=== PATIENT | male | born 1950 | race Caucasian/White ===

== ENCOUNTER 2020-08-31 15:40 | Inpatient (IN) ==
[2020-08-31] MEDS ORDERED: ALBUT/IPRATROP 3MG/0.5MG NEB 3 ML VIAL INH STA (16:24)
[2020-08-31 16:35] LABS: Basophils # (auto) 0.01 K/uL (0-0.2); Basophils % (auto) 0.1 %; Eosinophils # (auto) 0.06 K/uL (0-0.5); Eosinophils % (auto) 0.7 %; Hematocrit (blood only) 42.4 % (42-52); Hemoglobin 13.4 g/dL (14.0-18.0); Immature Granulocytes # (auto) 0.02 K/uL (0.00-0.02); Immature Granulocytes % (auto) 0.2 %; Lymphocytes # (auto) 1.11 K/uL (1.2-3.4); Lymphocytes % (auto) 12.6 %; Mean Corpuscular Hemoglobin 29.7 pg (25-34); Mean Corpuscular Hgb Conc 31.6 g/dL (32-36); Mean Platelet Volume 10.4 fL (7.4-10.4); Monocytes # (auto) 0.73 K/uL (0.11-0.59); Monocytes % (auto) 8.3 %; Neutrophils # (auto) 6.88 K/uL (1.4-6.5); Neutrophils % (auto) 78.1 %; Platelet Count 387 K/uL (130-400); RDW Coefficient of Variation 16.5 % (11.5-14.5); RDW Standard Deviation 56.5 fL (36.4-46.3); Red Blood Count 4.51 M/uL (4.7-6.1); White Blood Count 8.81 K/uL (4.8-10.8)
[2020-08-31 16:43] LABS: Alanine Aminotransferase 43 U/L (12-78); Albumin Level 2.7 gm/dl (3.4-5.0); Aspartate Aminotransferase 20 U/L (15-37); Blood Urea Nitrogen 16 mg/dl (7-18); Calcium 10.1 mg/dl (8.5-10.1); Carbon Dioxide 31 mmol/L (21-32); Chloride 104 mmol/L (98-107); Est GFR (African American) 100.4; Est GFR (Non-African American) 86.6; Glucose 108 mg/dl (70-99); Magnesium 1.7 mg/dl (1.8-2.4); Potassium 3.8 mmol/L (3.5-5.1); Sodium 141 mmol/L (136-145)
[2020-08-31 16:48] LABS: Albumin Globulin Ratio 0.8 (0.9-2); Alkaline Phosphatase 75 U/L (45-117); Bilirubin,Total 0.7 mg/dl (0.2-1); Globulin 3.5 gm/dl (2.5-4.0); Total Protein 6.2 gm/dl (6.4-8.2); Troponin I 0.026 ng/ml (0-0.045)
[2020-08-31 16:55] LABS: INR 1.1 (0.9-1.1); Partial Thromboplastin Ratio 0.9; Partial Thromboplastin Time 24.8 Seconds (21.0-31.0); Prothrombin Time 11.3 Seconds (9.0-12.0)
--- NOTE | 2020-08-31 16:57 | XRay Report ---
XR chest 1V portable HISTORY: 70 years-old Male SOB acute shortness of breath COMPARISON: None TECHNIQUE: Portable AP view of the chest FINDINGS: Cardiac silhouette is upper limits of normal in size. Prominence of the pulmonary vasculature may ref lect pulmonary artery hypertension. Suggested emphysema. No pneumothorax. Interstitial opacities of t he mid and lower lung zones. Mild blunting of the costophrenic angles. Degenerative changes of the sh oulders and spine. IMPRESSION: Emphysema with interstitial opacities of the mid and lower lung zones which may be on a c hronic basis with associated atelectasis. An interstitial pneumonitis would be difficult to exclude. ACT 112: Negative or not required by law. The above report was generated using voice recognition software. It may contain grammatical, syntax o r spelling errors. Electronically signed by: Taz Farrar M.D. 08/31/2020 4:56 PM
--- NOTE | 2020-08-31 17:03 | Emergency Department Note ---
Impression & Plan Hypoxia, SOB (shortness of breath), Abnormal chest CT, Failure of outpatient treatment ED Provider Note NAME: MARION NAIK Jr AGE: 70 SEX: M : 1950 ARRIVES VIA: Ambulance INFORMANT: [Patient] ED PROVIDER(S): [Shukri Ford MD] CHIEF COMPLAINT: Short of breath HISTORY OF PRESENT ILLNESS: The patient is a 70-year-old male with COPD. He states that he was in the [facility] at the end of June until around July 27. He was in for Covid pneumonia. He was discharged on 4 L of O2, he had been on 2 L prior to the hospitalization. The patient states that around 2 weeks ago, he saw his doctors office and his doctor told him to increase his O2 usage to 8 L when needed. The patient was unable to get the equipment to supply 8 L of oxygen. Today, he went to the [facility] hoping they had the right equipment. [facility] of [facility], he was short of breath and his O2 saturation was in the 60s. He was sent here by ambulance. He did receive a DuoNeb prior to arrival. The patient states that he does not want to be here in the hospital. He only wants a way to administer the oxygen amount his doctor prescribed. He states that right now, he is comfortable. Its with exertion that he has shortness of breath. Patient has not had recent fever, no change in cough. He has had no diarrhea or vomiting or chest pain. Patient states that he finished a prednisone taper about a week ago. He is not currently on prednisone or any antibiotic. He has never had a PE or DVT. The patient's portable oxygen only supplies 4 L. His home oxygen delivery system can only supply 5 L. REVIEW OF SYSTEMS: See HPI for pertinent positives and negatives. A total of ten systems were reviewed and were otherwise negative. PMHx/PSHx: See Below SOCIAL HISTORY: See Below. PHYSICAL EXAM: GENERAL: Patient is in no acute distress. HEENT: No acute trauma, normocephalic atraumatic, mucous membranes moist, no nasal congestion, no scleral icterus. NECK: No stridor, no adenopathy, no meningismus, trachea is midline. LUNGS: Diminished breath sounds bilaterally, no wheeze or rhonchi, no respiratory distress. No wheeze. HEART: Without murmurs gallops or rubs, regular rate and rhythm. ABDOMEN: Soft, nontender, bowel sounds positive, no hernias, no peritonitis. EXTREMITIES: No cyanosis, mild bilateral pedal edema, full range of motion of all the joints without pain or difficulty, no signs for acute trauma. NEUROLOGIC: Oriented x 3, no acute motor or sensory deficits, no focal weakness. SKIN: No rash, no jaundice, no diaphoresis. DIFFERENTIAL DIAGNOSIS: Reactive airway disease, pneumonia, pneumothorax, COPD, CHF, infection, cardiac ischemia, pulmonary embolism, bronchitis, musculoskeletal, gastrointestinal, as well as other pathologies. EMERGENCY DEPARTMENT COURSE/PROCEDURES: ECG: Indication was shortness of breath. The ECG shows a normal sinus rhythm with some baseline artifact. There is some T wave inversion in the inferior and anterior leads. No ST elevation, no PVCs. The QTc is 339. No old ECGs available for comparison. Continuous Cardiac Monitoring: An order was placed for continuous cardiac monitoring. The monitor shows a rate of 97 with normal sinus rhythm. Critical Care Note: I have personally spent 43 minutes of critical care time in the direct management of this patient. This includes bedside care, interpretation of diagnostic studies, and testing, discussion with consultants, patient, and family members, and other required patient management activities. This 43 minutes is in excess of all separately billable procedures. MEDICAL DECISION MAKING: There is no leukocytosis or concerning anemia. There is a normal platelet count. No coagulopathy. No kidney failure. Magnesium slightly low at 1.7. No concerning liver enzyme elevation. Chest film shows some congestion to both lungs, no CHF or pneumonia. Chest CT does not show any obvious acute PE, some potential chronic findings were seen. Patient did have pulmonary infiltrates consistent with potential pneumonia. Some mucus plugging was seen. ECG showed a sinus rhythm, there were some T wave changes but no ST elevation. Cardiac enzyme testing x1 is not consistent with acute cardiac injury. The patient was hypoxic on his 4 L of oxygen prior to arrival. He has required an oxygen mask here to keep his saturations adequate. The patient presents with hypoxia. He likely is having issues from his previous Covid infection. I suspect he is still recovering. He has underlying lung disease at baseline and with the Covid infection, I think things have flared quite a bit. Patient is unable to get the oxygen he needs to be safe at home. I talked to the patient, he is aware of his findings. I did speak with case management. Case management attempted to arrange for oxygen delivery to his house this evening but were unsuccessful. [facility]. The patient is in need of hospitalization, he is hypoxic without significant oxygen supplementation. I did speak with the on-call hospitalist. Past Med/Surg History Medical History COPD (chronic obstructive pulmonary disease) COVID-19 Social History Smoking Status: Former smoker Feels Safe at Home: Yes Allergies Allergies Allergy/AdvReac Type Severity Reaction Status Date / Time No Known Allergies Allergy Verified 08/31/20 16:45 Home Meds Home Medications Medication Instructions Recorded Confirmed acetylcysteine 3 ml INHALATION BID 08/31/20 08/31/20 albuterol sulfate 2 puff INHALATION Q4H PRN 08/31/20 08/31/20 albuterol sulfate 2.5 mg INHALATION QID PRN 08/31/20 08/31/20 alendronate 70 mg PO WK 08/31/20 08/31/20 budesonide-formoterol 2 puff INHALATION BID 08/31/20 08/31/20 bupropion HCl 100 mg PO BID 08/31/20 08/31/20 calcium carbonate-vitamin D3 2 tab PO BID 08/31/20 08/31/20 [Calcium 500 + D] mometasone 3 inh INHALATION HS 08/31/20 08/31/20 montelukast [Singulair] 10 mg PO DAILY 08/31/20 08/31/20 omega 4-ego-duc-fish oil [Fish Oil] 2 cap PO DAILY 08/31/20 08/31/20 prednisone 40 mg PO DAILY PRN 08/31/20 08/31/20 sildenafil 100 mg PO DAILY PRN 08/31/20 08/31/20 tiotropium bromide 1 cap INHALATION DAILY 08/31/20 08/31/20 Results & Data (ED) Vital Signs Vital Signs - 24 hr 08/31/20 15:46 08/31/20 15:55 08/31/20 15:57 Temperature 36.8 C Temperature Source Oral Pulse Rate 100 H 99 H 101 H Pulse Rate [Apical] 101 H Pulse Rate from SpO2 Sensor Respiratory Rate 23 21 26 H Respiratory Effort / Characteristics Spontaneous Labored Respiratory Depth Normal Respiratory Pattern Regular Blood Pressure 134/86 134/86 Blood Pressure [Right Arm] 134/86 Blood Pressure Mean 102 102 Blood Pressure Mean [Right Arm] 102 Pulse Oximetry 73 L Oxygen Delivery Method Nasal Cannula Oxygen Flow Rate 8 Sepsis Recent Fever Within 48 Hours No Sepsis New/Unexplained Change in Mental Status No Sepsis Action Taken by Nursing No Action Required 08/31/20 16:00 08/31/20 16:02 08/31/20 16:03 Temperature Temperature Source Pulse Rate 95 H 96 H 96 H Pulse Rate [Apical] Pulse Rate from SpO2 Sensor 96 H 96 H Respiratory Rate 22 23 23 Respiratory Effort / Characteristics Respiratory Depth Respiratory Pattern Blood Pressure 119/80 Blood Pressure [Right Arm] Blood Pressure Mean 93 Blood Pressure Mean [Right Arm] Pulse Oximetry 95 93 Oxygen Delivery Method Oxymask Oxymask Oxygen Flow Rate 9 9 Sepsis Recent Fever Within 48 Hours Sepsis New/Unexplained Change in Mental Status Sepsis Action Taken by Nursing 08/31/20 16:29 08/31/20 16:30 08/31/20 16:31 Temperature Temperature Source Pulse Rate 91 H 90 89 Pulse Rate [Apical] Pulse Rate from SpO2 Sensor 91 H 89 Respiratory Rate 24 16 24 Respiratory Effort / Characteristics Respiratory Depth Respiratory Pattern Blood Pressure 133/80 Blood Pressure [Right Arm] Blood Pressure Mean 97 Blood Pressure Mean [Right Arm] Pulse Oximetry 93 90 93 Oxygen Delivery Method Oxymask Oxymask Oxymask Oxygen Flow Rate 9 9 9 Sepsis Recent Fever Within 48 Hours Sepsis New/Unexplained Change in Mental Status Sepsis Action Taken by Nursing 08/31/20 16:45 08/31/20 17:00 08/31/20 17:01 Temperature Temperature Source Pulse Rate 86 83 Pulse Rate [Apical] 90 Pulse Rate from SpO2 Sensor 89 84 Respiratory Rate 26 H 18 18 Respiratory Effort / Characteristics Spontaneous Respiratory Depth Respiratory Pattern Blood Pressure 133/87 Blood Pressure [Right Arm] Blood Pressure Mean 102 Blood Pressure Mean [Right Arm] Pulse Oximetry 93 95 Oxygen Delivery Method Oxymask Oxymask Oxygen Flow Rate 7 9 Sepsis Recent Fever Within 48 Hours Sepsis New/Unexplained Change in Mental Status Sepsis Action Taken by Nursing 08/31/20 17:31 08/31/20 18:00 08/31/20 18:01 Temperature Temperature Source Pulse Rate 81 80 79 Pulse Rate [Apical] Pulse Rate from SpO2 Sensor 81 80 78 Respiratory Rate 22 22 21 Respiratory Effort / Characteristics Respiratory Depth Respiratory Pattern Blood Pressure 130/85 139/83 Blood Pressure [Right Arm] Blood Pressure Mean 100 101 Blood Pressure Mean [Right Arm] Pulse Oximetry 94 93 91 Oxygen Delivery Method Oxymask Oxymask Oxymask Oxygen Flow Rate 7 7 7 Sepsis Recent Fever Within 48 Hours Sepsis New/Unexplained Change in Mental Status Sepsis Action Taken by Nursing 08/31/20 18:30 08/31/20 18:31 08/31/20 19:00 Temperature Temperature Source Pulse Rate 81 80 88 Pulse Rate [Apical] Pulse Rate from SpO2 Sensor 81 81 88 Respiratory Rate 22 24 25 H Respiratory Effort / Characteristics Respiratory Depth Respiratory Pattern Blood Pressure 130/88 154/94 H Blood Pressure [Right Arm] Blood Pressure Mean 102 114 Blood Pressure Mean [Right Arm] Pulse Oximetry 93 93 90 Oxygen Delivery Method Oxymask Oxymask Oxymask Oxygen Flow Rate 7 7 7 Sepsis Recent Fever Within 48 Hours Sepsis New/Unexplained Change in Mental Status Sepsis Action Taken by Nursing 08/31/20 19:01 08/31/20 19:30 Temperature Temperature Source Pulse Rate 86 81 Pulse Rate [Apical] Pulse Rate from SpO2 Sensor 86 80 Respiratory Rate 27 H 25 H Respiratory Effort / Characteristics Respiratory Depth Respiratory Pattern Blood Pressure 153/91 H Blood Pressure [Right Arm] Blood Pressure Mean 111 Blood Pressure Mean [Right Arm] Pulse Oximetry 92 97 Oxygen Delivery Method Oxymask Oxymask Oxygen Flow Rate 7 7 Sepsis Recent Fever Within 48 Hours Sepsis New/Unexplained Change in Mental Status Sepsis Action Taken by Assisted Medications Current Medication List: was personally reviewed by me Laboratory Data Attestation: I reviewed the patient's lab results. Result diagrams: 08/31/20 16:00 08/31/20 16:00 Lab Results 08/31/20 08/31/20 08/31/20 Range/Units 16:00 16:00 16:00 WBC 8.81 (4.8-10.8) K/uL RBC 4.51 L (4.7-6.1) M/uL Hgb 13.4 L (14.0-18.0) g/dL Hct 42.4 (42-52) % MCV 94.0 (80-100) fL MCH 29.7 (25-34) pg MCHC 31.6 L (32-36) g/dL RDW Std Deviation 56.5 H (36.4-46.3) fL RDW Coeff of Benji 16.5 H (11.5-14.5) % Plt Count 387 (130-400) K/uL MPV 10.4 (7.4-10.4) fL Immature Gran % (Auto) 0.2 % Neut % (Auto) 78.1 % Lymph % (Auto) 12.6 % [place] % (Auto) 8.3 % Eos % (Auto) 0.7 % Baso % (Auto) 0.1 % Reticulocyte % (Auto) 3.9 H (0.5-2.0) % Neut # (Auto) 6.88 H (1.4-6.5) K/uL Lymph # (Auto) 1.11 L (1.2-3.4) K/uL [place] # (Auto) 0.73 H (0.11-0.59) K/uL Eos # (Auto) 0.06 (0-0.5) K/uL Baso # (Auto) 0.01 (0-0.2) K/uL Reticulocyte # 0.17 H (0.02-0.10) 10^6/uL Immature Gran # (Auto) 0.02 (0.00-0.02) K/uL PT 11.3 (9.0-12.0) Seconds INR 1.1 (0.9-1.1) APTT 24.8 (21.0-31.0) Seconds PTT Ratio 0.9 Sodium 141 (136-145) mmol/L Potassium 3.8 (3.5-5.1) mmol/L Chloride 104 (98-107) mmol/L Carbon Dioxide 31 (21-32) mmol/L Anion Gap 7.0 (3-11) BUN 16 (7-18) mg/dl Creatinine 0.89 (0.6-1.4) mg/dl Est Cr Clr Drug Dosing Not Reportable Est GFR ( Amer) 100.4 Est GFR (Non-Af Amer) 86.6 BUN/Creatinine Ratio 18.0 (10-20) Glucose 108 H (70-99) mg/dl Calcium 10.1 (8.5-10.1) mg/dl Magnesium 1.7 L (1.8-2.4) mg/dl Total Bilirubin 0.7 (0.2-1) mg/dl AST 20 (15-37) U/L ALT 43 (12-78) U/L Alkaline Phosphatase 75 (45-117) U/L Troponin I 0.026 (0-0.045) ng/ml Total Protein 6.2 L (6.4-8.2) gm/dl Albumin 2.7 L (3.4-5.0) gm/dl Globulin 3.5 (2.5-4.0) gm/dl Albumin/Globulin Ratio 0.8 L (0.9-2) COVID-19 Eval Order 08/31/20 Range/Units 20:18 WBC (4.8-10.8) K/uL RBC (4.7-6.1) M/uL Hgb (14.0-18.0) g/dL Hct (42-52) % MCV (80-100) fL MCH (25-34) pg MCHC (32-36) g/dL RDW Std Deviation (36.4-46.3) fL RDW Coeff of Benji (11.5-14.5) % Plt Count (130-400) K/uL MPV (7.4-10.4) fL Immature Gran % (Auto) % Neut % (Auto) % Lymph % (Auto) % [place] % (Auto) % Eos % (Auto) % Baso % (Auto) % Reticulocyte % (Auto) (0.5-2.0) % Neut # (Auto) (1.4-6.5) K/uL Lymph # (Auto) (1.2-3.4) K/uL [place] # (Auto) (0.11-0.59) K/uL Eos # (Auto) (0-0.5) K/uL Baso # (Auto) (0-0.2) K/uL Reticulocyte # (0.02-0.10) 10^6/uL Immature Gran # (Auto) (0.00-0.02) K/uL PT (9.0-12.0) Seconds INR (0.9-1.1) APTT (21.0-31.0) Seconds PTT Ratio Sodium (136-145) mmol/L Potassium (3.5-5.1) mmol/L Chloride (98-107) mmol/L Carbon Dioxide (21-32) mmol/L Anion Gap (3-11) BUN (7-18) mg/dl Creatinine (0.6-1.4) mg/dl Est Cr Clr Drug Dosing Est GFR ( Amer) Est GFR (Non-Af Amer) BUN/Creatinine Ratio (10-20) Glucose (70-99) mg/dl Calcium (8.5-10.1) mg/dl Magnesium (1.8-2.4) mg/dl Total Bilirubin (0.2-1) mg/dl AST (15-37) U/L ALT (12-78) U/L Alkaline Phosphatase (45-117) U/L Troponin I (0-0.045) ng/ml Total Protein (6.4-8.2) gm/dl Albumin (3.4-5.0) gm/dl Globulin (2.5-4.0) gm/dl Albumin/Globulin Ratio (0.9-2) COVID-19 Eval [email or web address] Administered Medications Discontinued Medications Albuterol (Albut/Ipratrop 3mg/0.5mg Neb 3 Ml Vial) 3 ml INH NOW STA Stop: 08/31/20 16:25 Last Admin: 08/31/20 16:45 Dose: 3 ml Documented by: [id number] Dexamethasone (Dexamethasone Sod Inj 4 Mg/Ml Vial) 6 mg IV NOW STA Stop: 08/31/20 19:49 Last Admin: 08/31/20 20:11 Dose: 6 mg Documented by: [id number] Magnesium Sulfate/Dextrose (Magnesium Sulfate / D5w) 1 gm in 100 mls @ 100 mls/hr IV NOW STA Stop: 08/31/20 18:09 Last Infusion: 08/31/20 18:36 Dose: 0 mls/hr Documented by: [id number] Admin: 08/31/20 17:25 Dose: 100 mls/hr Documented by: [id number] Ioversol (Optiray 320 125ml) 116 ml IV ONCE ONE Stop: 08/31/20 18:50 Last Admin: 08/31/20 18:50 Dose: 116 ml Documented by: [id number] Potassium Chloride (Potassium Chloride Crtab 20 Meq Tabcr) 20 meq PO NOW STA Stop: 08/31/20 19:49 Last Admin: 08/31/20 20:11 Dose: 20 meq Documented by: [id number] Imaging Data Radiologist's Impression: XR chest 1V portable HISTORY: 70 years-old Male SOB acute shortness of breath COMPARISON: None TECHNIQUE: Portable AP view of the chest FINDINGS: Cardiac silhouette is upper limits of normal in size. Prominence of the pulmonary vasculature may reflect pulmonary artery hypertension. Suggested emphysema. No pneumothorax. Interstitial opacities of the mid and lower lung zones. Mild blunting of the costophrenic angles. Degenerative changes of the shoulders and spine. IMPRESSION: Emphysema with interstitial opacities of the mid and lower lung zones which may be on a chronic basis with associated atelectasis. An interstitial pneumonitis would be difficult to exclude. CHEST CTA for PULMONARY ARTERIES CT DOSE: 354.41 mGy.cm HISTORY: Shortness of breath. Atypical chest pain. TECHNIQUE: Multiaxial CT images of the chest were performed following the intravenous administration of contrast to evaluate the pulmonary arteries. Maxim al intensity projection images were also obtained. A dose lowering technique was utilized adhering to the principles of ALARA. COMPARISON STUDY: None. FINDINGS: The ascending thoracic aorta measures up to 4.3 cm in diameter. Inadequate contrast within the thoracic aorta to evaluate for a dissection. No pleural or pericardial effusions. The heart is mildly enlarged. Limited views of the upper abdomen demonstrate a normal spleen and adrenal glands. There is retrograde opacification of the hepatic veins. Normal esophagus. Incidental note is made of an aberrant right subclavian artery. There is mild mediastinal and bilateral hilar lymphadenopathy. The dominant left infrahilar lymph node measu res 1.7 cm. A dominant right hilar lymph node measures 11 mm. Dominant AP window lymph node measures 13 mm. Old L1 compression deformity. No suspicious lytic are blastic osseous lesions. Severe bullous emphysema. Partial opacification of a few the right middle and lower lobe bronchi. A few small linear scarlike densities within the upper lung zones. A few small peripheral nodular and groundglass densities are seen at the left lung base. Dominant irregular density within the base of the left lower lobe measures 1.6 cm. This is best seen on image 77. A few additional smaller nodular densities measuring between 5 and 8 mm. Additional patchy densities within the base of the right middle lobe and right lower lobe. These are nonspecific and could represent atelectasis or pneumonia. Questionable small linear filling defect seen within the right middle lobe pulmonary artery on image 138. This favors heterogeneous opacification rather than a chronic embolus. No evidence for acute pulmonary embolus. IMPRESSION: 1. No evidence for acute pulmonary embolus. 2. Questionable small linear filling defect seen within the right middle lobe pulmonary artery favors heterogeneous opacification rather than a chronic pulmonary embolus. 3. Severe emphysema. 4. Partial mucoid opacification of a few the right middle and lower lobe bronchi. 5. Patchy densities within the base of the right middle lobe and right lower lobe. This could represent atelectasis or pneumonia. 6. Small peripheral nodular and groundglass densities within the left lung base as described above. This could be due to a mild pneumonitis. However, [address] follow-up recommended to ensure stability/resolution of these nodules. 7. Mild mediastinal and bilateral hilar lymphadenopathy. This also bears watching future examinations. Discharge Plan Visit Data Chief Complaint: Shortness of Breath/Dyspnea Stated Complaint: SOB, HYPOXIA ED Provider: Shukri Ford Discharge Problem: Hypoxia, SOB (shortness of breath), Abnormal chest CT, Failure of outpatient treatment Patient Disposition: Admitted As Inpatient Condition: Fair Forms Stand Alone Forms: [facility] Prescriptions Prescriptions: No Action acetylcysteine 200 mg/mL (20 %) Solution 3 ml INHALATION BID RF: 0 albuterol sulfate 2.5 mg /3 mL (0.083 %) Solution For Nebulization 2.5 mg INHALATION QID PRN (Reason: Shortness Of Breath) RF: 0 prednisone 20 mg Tablet 40 mg PO DAILY PRN (Reason: RESCUE KIT) RF: 0 alendronate 70 mg Tablet 70 mg PO WK RF: 0 sildenafil 100 mg Tablet 100 mg PO DAILY PRN (Reason: Erectile Dysfunction) RF: 0 bupropion HCl 100 mg Tablet Sustained-Release 12 Hr 100 mg PO BID RF: 0 montelukast [Singulair] 10 mg Tablet 10 mg PO DAILY RF: 0 albuterol sulfate 90 mcg/actuation Hfa Aerosol Inhaler 2 puff INHALATION Q4H PRN (Reason: Shortness Of Breath) RF: 0 tiotropium bromide 18 mcg Capsule, W/Inhalation Device 1 cap INHALATION DAILY RF: 0 calcium carbonate-vitamin D3 [Calcium 500 + D] 500 mg(1,250mg) -200 unit Tablet 2 tab PO BID RF: 0 mometasone 220 mcg/ actuation (60) Aerosol Powdr Breath Activated 3 inh INHALATION HS RF: 0 budesonide-formoterol 160-4.5 mcg/actuation Hfa Aerosol Inhaler 2 puff INHALATION BID RF: 0 omega 0-wkv-vkm-fish oil [Fish Oil] 1,000 mg (120 mg-180 mg) Capsule 2 cap PO DAILY RF: 0 Referrals Referrals: Zoran Morrell III, MD [Primary Care Provider] -
[2020-08-31] MEDS ORDERED: MAGNESIUM SULFATE / D5W 1 GM/100 ML BAG IV STA (17:10)
[2020-08-31] MEDS ORDERED: OPTIRAY 320 125ml IV ONE (18:49)
--- NOTE | 2020-08-31 19:25 | CT Scan Report ---
CHEST CTA for PULMONARY ARTERIES CT DOSE: 354.41 mGy.cm HISTORY: Shortness of breath. Atypical chest pain. TECHNIQUE: Multiaxial CT images of the chest were performed following the intravenous administration of contrast to evaluate the pulmonary arteries. Maximal intensity projection images were also obtaine d. A dose lowering technique was utilized adhering to the principles of ALARA. COMPARISON STUDY: None. FINDINGS: The ascending thoracic aorta measures up to 4.3 cm in diameter. Inadequate contrast within the thoracic aorta to evaluate for a dissection. No pleural or pericardial effusions. The heart is mi ldly enlarged. Limited views of the upper abdomen demonstrate a normal spleen and adrenal glands. The re is retrograde opacification of the hepatic veins. Normal esophagus. Incidental note is made of an aberrant right subclavian artery. There is mild mediastinal and bilateral hilar lymphadenopathy. The dominant left infrahilar lymph node measures 1.7 cm. A dominant right hilar lymph node measures 11 mm . Dominant AP window lymph node measures 13 mm. Old L1 compression deformity. No suspicious lytic are blastic osseous lesions. Severe bullous emphysema. Partial opacification of a few the right middle a nd lower lobe bronchi. A few small linear scarlike densities within the upper lung zones. A few small peripheral nodular and groundglass densities are seen at the left lung base. Dominant irregular dens ity within the base of the left lower lobe measures 1.6 cm. This is best seen on image 77. A few scottie tional smaller nodular densities measuring between 5 and 8 mm. Additional patchy densities within the base of the right middle lobe and right lower lobe. These are nonspecific and could represent atelec tasis or pneumonia. Questionable small linear filling defect seen within the right middle lobe pulmon chi artery on image 138. This favors heterogeneous opacification rather than a chronic embolus. No ev idence for acute pulmonary embolus. IMPRESSION: 1. No evidence for acute pulmonary embolus. 2. Questionable small linear filling defect seen within the right middle lobe pulmonary artery favors heterogeneous opacification rather than a chronic pulmonary embolus. 3. Severe emphysema. 4. Partial mucoid opacification of a few the right middle and lower lobe bronchi. 5. Patchy densities within the base of the right middle lobe and right lower lobe. This could represe nt atelectasis or pneumonia. 6. Small peripheral nodular and groundglass densities within the left lung base as described above. T his could be due to a mild pneumonitis. However, [address] follow-up recommended to ensure sta bility/resolution of these nodules. 7. Mild mediastinal and bilateral hilar lymphadenopathy. This also bears watching future examinations . ACT 112: Positive. There are findings on this exam that require communication between the performing entity and the patient following Patient Test Result Information Act ([place] Act 112) guidelines. Electronically signed by: Gumaro Redman M.D. 08/31/2020 7:23 PM
[2020-08-31] MEDS ORDERED: POTASSIUM CHLORIDE CRTAB 20 MEQ TABCR PO STA (19:48)
[2020-08-31] MEDS ORDERED: DEXAMETHASONE SOD INJ 4 MG/ML VIAL IV STA (19:48)
[2020-08-31 20:13] LABS: Reticulocyte % 3.9 % (0.5-2.0); Reticulocytes # 0.17 10^6/uL (0.02-0.10)
[2020-08-31 20:39] LABS: HCO3 ABG 29 mmol/L (19-24); Oxygen Saturation ABG 96.7 % (90-95); PCO2 ABG 52 mmHg (35-46); PO2 ABG 93 mmHg (80-95); pH ABG 7.37 (7.35-7.45)
--- NOTE | 2020-08-31 20:43 | History & Physical Report ---
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 mood disorder as per records, at baseline past tobacco abuse. Medical telemetry Supplemental O2 Baseline ABG Decadron 1 dose now Patient requesting to hold off on additional steroid Rx after initial Decadron dose unless without improvement in the morning. Hesitation with steroid course following prolonged steroid course for recent COVID-19 illness. [facility] RTC Social service RE assistance with procurement of durable medical equipment (home O2 w 8LPM capability) Anemia work-up, transfuse PRBC if hemoglobin less than 7 and or for symptomatic anemia DVT prophylaxis Lovenox subcu DNR Total critical care care time was 40 minutes. Text document was generated using [email or web address] voice recognition software. It may contain grammatical or spelling errors. Kindly contact undersigned for clarification of any documentation item in question. History of Present Illness Chief Complaint: Hypoxemia Primary Care Provider: Zoran Morrell III, MD History obtained from patient and records. 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 Last confinement [facility] in [place] 6 weeks ago for COVID-19 pneumonia. No intubation done. Patient discharged home on supplemental O2 4 to 6 LPNC. After being discharged to home second week of July, patient found out that his oxygen concentrator only goes up to 5 L/min. Shortness of breath on exertion noted at home. O2 sats 80s on maximal 5 L at home. No unusual chest pain or cough symptoms. On follow-up at PCPs office last week, initial pulse ox noted to be 84%. Pulse ox improved to 92% on 8 L. Patient given prescription for home O2 set at 8 [facility]. Patient also given Lasix prescription for 2 weeks with note of leg swelling during office visit. Patient was at the local [place] clinic today to procure home O2 equipment. Equipment not available at the [place]. Patient noted to be short of breath and hypoxemic at the [place] clinic. O2 sats 60s. No chest pain, no unusual cough symptoms. Patient brought to the ER for evaluation. Received neb treatment at the ER. O2 sats at the ER at some point 80s on 10 L. Medical History as above Surgical History : Shoulder surgery, wrist surgery, hemorrhoidectomy Family History : Heart disease Personal/Social history : Past tobacco abuse, no EtOH intake, disabled Allergies Allergy/AdvReac Type Severity Reaction Status Date / Time No Known Allergies Allergy Verified 08/31/20 16:45 Home Medications Medication Instructions Recorded Confirmed Type acetylcysteine 3 ml INHALATION BID 08/31/20 08/31/20 History albuterol sulfate 2 puff INHALATION Q4H PRN 08/31/20 08/31/20 History albuterol sulfate 2.5 mg INHALATION QID PRN 08/31/20 08/31/20 History alendronate 70 mg PO WK 08/31/20 08/31/20 History budesonide-formoterol 2 puff INHALATION BID 08/31/20 08/31/20 History bupropion HCl 100 mg PO BID 08/31/20 08/31/20 History calcium carbonate-vitamin D3 2 tab PO BID 08/31/20 08/31/20 History [Calcium 500 + D] mometasone 3 inh INHALATION HS 08/31/20 08/31/20 History montelukast [Singulair] 10 mg PO DAILY 08/31/20 08/31/20 History omega 8-dvi-[id number]-fish oil [Fish Oil] 2 cap PO DAILY 08/31/20 08/31/20 History prednisone 40 mg PO DAILY PRN 08/31/20 08/31/20 History sildenafil 100 mg PO DAILY PRN 08/31/20 08/31/20 History tiotropium bromide 1 cap INHALATION DAILY 08/31/20 08/31/20 History Past Med/Surg History Medical History COPD (chronic obstructive pulmonary disease) COVID-19 Social History Smoking Status: Former smoker Smoking End Date: 7 yrs ago; Hx Alcohol Use: No Hx Substance Use: No Preferred Language: [place] Current Living Situation: Spouse Other Information That Helps Us Care for You: No Feels Safe at Home: Yes Assistive Devices: Glasses and Oxygen - Continuous Review of Systems Review of Systems: As per HPI, all 10 systems reviewed, all other ROS negative Physical Exam Physical Exam: GENERAL: Slightly uncomfortable, minimal respiratory distress SKIN: Pallor , warm HEENT: Pale palpebral conjunctivae, no ptosis, dry buccal mucosa, nasal cannula in place NECK : Supple, no tenderness CHEST : Decreased breath sounds, occasional expiratory wheezes, no tenderness HEART : RRR, no obvious murmurs ABDOMEN: Some distention, nontender RECTAL : Refused EXTREMITIES : No LE swelling/tenderness, no other conspicuous deformities noted NEUROLOGIC : Coherent, no facial asymmetry, no other gross focality Results & Data Results & Data ([facility]) Vital Signs (Past 12 Hours) Vital Signs Temp Pulse Pulse Resp BP BP Pulse Ox 08/31/20 19:30 81 25 H 153/91 H 97 08/31/20 19:01 86 27 H 92 08/31/20 19:00 88 25 H 154/94 H 90 08/31/20 18:31 80 24 93 08/31/20 18:30 81 22 130/88 93 08/31/20 18:01 79 21 91 08/31/20 18:00 80 22 139/83 93 08/31/20 17:31 81 22 130/85 94 08/31/20 17:01 83 18 95 08/31/20 17:00 86 18 133/87 08/31/20 16:45 90 26 H 93 08/31/20 16:31 89 24 93 08/31/20 16:30 90 16 133/80 90 08/31/20 16:29 91 H 24 93 08/31/20 16:03 96 H 23 93 08/31/20 16:02 96 H 23 119/80 95 08/31/20 16:00 95 H 22 08/31/20 15:57 36.8 C 101 H 101 H 26 H 134/86 134/86 73 L 08/31/20 15:55 99 H 21 08/31/20 15:46 100 H 23 134/86 Laboratory Results Laboratory Results WBC 8.81 K/uL (4.8-10.8) 08/31/20 16:00 RBC 4.51 M/uL (4.7-6.1) L 08/31/20 16:00 Hgb 13.4 g/dL (14.0-18.0) L 08/31/20 16:00 Hct 42.4 % (42-52) 08/31/20 16:00 MCV 94.0 fL (80-100) 08/31/20 16:00 MCH 29.7 pg (25-34) 08/31/20 16:00 MCHC 31.6 g/dL (32-36) L 08/31/20 16:00 RDW Std Deviation 56.5 fL (36.4-46.3) H 08/31/20 16:00 RDW Coeff of Benji 16.5 % (11.5-14.5) H 08/31/20 16:00 Plt Count 387 K/uL (130-400) 08/31/20 16:00 MPV 10.4 fL (7.4-10.4) 08/31/20 16:00 Immature Gran % (Auto) 0.2 % 08/31/20 16:00 Neut % (Auto) 78.1 % 08/31/20 16:00 Lymph % (Auto) 12.6 % 08/31/20 16:00 Yuba % (Auto) 8.3 % 08/31/20 16:00 Eos % (Auto) 0.7 % 08/31/20 16:00 Baso % (Auto) 0.1 % 08/31/20 16:00 Reticulocyte % (Auto) 3.9 % (0.5-2.0) H 08/31/20 16:00 Neut # (Auto) 6.88 K/uL (1.4-6.5) H 08/31/20 16:00 Lymph # (Auto) 1.11 K/uL (1.2-3.4) L 08/31/20 16:00 Yuba # (Auto) 0.73 K/uL (0.11-0.59) H 08/31/20 16:00 Eos # (Auto) 0.06 K/uL (0-0.5) 08/31/20 16:00 Baso # (Auto) 0.01 K/uL (0-0.2) 08/31/20 16:00 Reticulocyte # 0.17 10^6/uL (0.02-0.10) H 08/31/20 16:00 Immature Gran # (Auto) 0.02 K/uL (0.00-0.02) 08/31/20 16:00 PT 11.3 Seconds (9.0-12.0) 08/31/20 16:00 INR 1.1 (0.9-1.1) 08/31/20 16:00 APTT 24.8 Seconds (21.0-31.0) 08/31/20 16:00 PTT Ratio 0.9 08/31/20 16:00 Sodium 141 mmol/L (136-145) 08/31/20 16:00 Potassium 3.8 mmol/L (3.5-5.1) 08/31/20 16:00 Chloride 104 mmol/L (98-107) 08/31/20 16:00 Carbon Dioxide 31 mmol/L (21-32) 08/31/20 16:00 Anion Gap 7.0 (3-11) 08/31/20 16:00 BUN 16 mg/dl (7-18) 08/31/20 16:00 Creatinine 0.89 mg/dl (0.6-1.4) 08/31/20 16:00 Est Cr Clr Drug Dosing Not Reportable 08/31/20 16:00 Est GFR ( Amer) 100.4 08/31/20 16:00 Est GFR (Non-Af Amer) 86.6 08/31/20 16:00 BUN/Creatinine Ratio 18.0 (10-20) 08/31/20 16:00 Glucose 108 mg/dl (70-99) H 08/31/20 16:00 Calcium 10.1 mg/dl (8.5-10.1) 08/31/20 16:00 Magnesium 1.7 mg/dl (1.8-2.4) L 08/31/20 16:00 Total Bilirubin 0.7 mg/dl (0.2-1) 08/31/20 16:00 AST 20 U/L (15-37) 08/31/20 16:00 ALT 43 U/L (12-78) 08/31/20 16:00 Alkaline Phosphatase 75 U/L (45-117) 08/31/20 16:00 Troponin I 0.026 ng/ml (0-0.045) 08/31/20 16:00 Total Protein 6.2 gm/dl (6.4-8.2) L 08/31/20 16:00 Albumin 2.7 gm/dl (3.4-5.0) L 08/31/20 16:00 Globulin 3.5 gm/dl (2.5-4.0) 08/31/20 16:00 Albumin/Globulin Ratio 0.8 (0.9-2) L 08/31/20 16:00 [facility]19 [facility] 08/31/[facility] 20:[address] chest: 1. No evidence for acute pulmonary embolus. 2. Questionable small linear filling defect seen within the right middle lobe pulmonary artery favors heterogeneous opacification rather than a chronic pulmonary embolus. 3. Severe emphysema. 4. Partial mucoid opacification of a few the right middle and lower lobe bronchi. 5. Patchy densities within the base of the right middle lobe and right lower lobe. This could represent atelectasis or pneumonia. 6. Small peripheral nodular and groundglass densities within the left lung base as described above. This could be due to a mild pneumonitis. However, [address] follow-up recommended to ensure stability/resolution of these nodules. 7. Mild mediastinal and bilateral hilar lymphadenopathy. This also bears watching future examinations. EKG as per my interpretation rate 95, RAD, T wave abnormalities septal leads, low voltage
[2020-08-31 20:44] LABS: Allen Test Pos (Pos)
[2020-08-31 21:00] LABS: Ferritin 623.5 ng/ml (8-388)
[2020-08-31 21:23] LABS: Folate (Folic Acid) 16.8 ng/ml (>5.38)
[2020-08-31] MEDS ORDERED: traMADol HCL 50 MG TABLET PO PRN (23:59)
[2020-08-31] MEDS ORDERED: ACETAMINOPHEN 325 MG TAB PO PRN (23:59)
[2020-08-31] MEDS ORDERED: LACTATED RINGER'S 1,000 ML IV ONE (23:59)
[2020-08-31] MEDS ORDERED: PROMETHAZINE HCL 12.5 MG in SODIUM CHLORIDE 0.9% 50 ML IV PRN (23:59)
[2020-09-01] MEDS: buPROPion SR 100 MG TABCR PO SCH ×3 (00:33→20:04)
[2020-09-01] MEDS: ACETYLCYSTEINE 20% INHAL SOLN 30ML INH SCH ×3 (01:32→19:33)
[2020-09-01] MEDS ORDERED: IPRATROPIUM BROMIDE NEB SOLN 0.02% 2.5 ML VIAL INH STA (01:45)
[2020-09-01] MEDS ORDERED: LEVALBUTEROL 1.25MG/0.5ML NEB INH STA (01:45)
[2020-09-01 06:30] LABS: Basophils # (auto) 0.01 K/uL (0-0.2); Basophils % (auto) 0.2 %; Hematocrit (blood only) 44.6 % (42-52); Hemoglobin 13.8 g/dL (14.0-18.0); Immature Granulocytes # (auto) 0.01 K/uL (0.00-0.02); Immature Granulocytes % (auto) 0.2 %; Lymphocytes # (auto) 0.78 K/uL (1.2-3.4); Lymphocytes % (auto) 12.2 %; Mean Corpuscular Hemoglobin 29.7 pg (25-34); Mean Corpuscular Hgb Conc 30.9 g/dL (32-36); Mean Corpuscular Volume 95.9 fL (80-100); Mean Platelet Volume 10.8 fL (7.4-10.4); Monocytes # (auto) 0.21 K/uL (0.11-0.59); Monocytes % (auto) 3.3 %; Neutrophils # (auto) 5.36 K/uL (1.4-6.5); Neutrophils % (auto) 84.1 %; Platelet Count 404 K/uL (130-400); RDW Coefficient of Variation 16.6 % (11.5-14.5); RDW Standard Deviation 57.5 fL (36.4-46.3); Red Blood Count 4.65 M/uL (4.7-6.1); White Blood Count 6.37 K/uL (4.8-10.8)
[2020-09-01 07:10] LABS: BUN Creatinine Ratio 18.4 (10-20); Creatinine Clr Calc Pharmacy 101.5 ml/min; Est GFR (African American) 104.9; Est GFR (Non-African American) 90.5; Magnesium 2.1 mg/dl (1.8-2.4); Potassium 4.9 mmol/L (3.5-5.1)
[2020-09-01] MEDS: CALCIUM 600MG + VIT D 400 IU TAB PO SCH ×2 (08:29→20:04)
[2020-09-01] MEDS: FLUTICASONE/VILANTEROL 200/25MCG 14 PUFFS/INHALER INH SCH (08:29)
[2020-09-01] MEDS: ENOXAPARIN INJ 30 MG/0.3 ML SYR SQ SCH (08:30)
--- NOTE | 2020-09-01 15:35 | Hospitalist Progress Note ---
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(2 L at rest and 4 L with ambulation), pulmonary hypertension as per records Did not have the right dose of oxygen delivery system at home which made him more shortness of breath with hypoxemia Recent infection with Covid is complicating the oxygen requirement status He was sent into the emergency room from the [place] clinic Initially he required 15 L of oxygen to maintain saturation but since admission that level has gone down to 10 and sometimes below 10 He has been feeling much better The patient did not want to have a steroid and antibiotics are not indicated Will need to have a 2 steps O2 saturation test before discharge Abnormal CT scan Nothing significant but worth to have a follow-up CTA reported as: 1. No evidence for acute pulmonary embolus. 2. Questionable small linear filling defect seen within the right middle lobe pulmonary artery favors heterogeneous opacification rather than a chronic pulmonary embolus. 3. Severe emphysema. 4. Partial mucoid opacification of a few the right middle and lower lobe bronchi. 5. Patchy densities within the base of the right middle lobe and right lower lobe. This could represent atelectasis or pneumonia. 6. Small peripheral nodular and groundglass densities within the left lung base as described above. This could be due to a mild pneumonitis. However, [address] follow-up recommended to ensure stability/resolution of these nodules. 7. Mild mediastinal and bilateral hilar lymphadenopathy. This also bears watching future examinations Doubt any active infection Mild QUINTIN (CPAP intolerance as per records) New onset anemia Hemoglobin more than 13.8 No symptoms of recent GI bleed Transient hematochezia from straining months back. Will not need any further work-up but preventive follow-up will be good Mood disorder as per records, at baseline No acute psychosis Past tobacco abuse. Quit smoking about 10 years back Social service RE assistance with procurement of durable medical equipment (home O2 w 8LPM capability) DVT prophylaxis Lovenox subcu DNR Admission and Anticipated Discharge Date Admission Date: August 31, 2020 Subjective 09/01/2020 The patient was seen and examined in medical telemetry unit He was admitted with acute respiratory failure with hypoxia secondary to COPD exacerbation He did not have exact amount of oxygen delivery system for his COPD Has been feeling much better and requiring less oxygen compared with that of on admission Review of Systems Review of Systems: All systems reviewed and are unremarkable except as noted below Respiratory: + dyspnea; no dyspnea on exertion Cardiovascular: no chest pain and no palpitations Gastrointestinal: no abdominal pain Physical Exam Physical Exam: Lying in bed with moderate shortness of breath Constitutional: + ill appearing and average body habitus Eyes: PERRL, conjunctivae normal, anicteric sclerae ENMT: external ear and nose normal, oropharynx normal Neck: trachea midline, no thyromegaly Respiratory: + respiratory distress Auscultation: + diminished lung sounds and + wheezes (Occasional wheezing bilaterally) Cardiovascular: Rate/Rhythm: regular rate and regular rhythm Heart Sounds: no murmur Extremities: no edema Gastrointestinal (Abdomen): Inspection/Auscultation: normal bowel sounds; abdomen not distended Percussion/Palpation: abdomen soft; abdomen nontender Musculoskeletal: No acute arthritis in any joint Neurologic: Alert, awake and oriented x3. Generally weak Psychiatric: A+Ox3, euthymic affect Lymphatic: no cervical or axillary lymphadenopathy Results & Data Results & Data ([facility]) Vital Signs (Past 12 Hours) Vital Signs Temp Pulse Pulse Pulse Resp BP BP 09/01/20 13:21 09/01/20 11:11 36.8 C 87 18 134/81 09/01/20 08:35 18 09/01/20 07:30 78 09/01/20 07:25 36.9 C 81 20 144/86 H 09/01/20 04:57 90 09/01/20 04:15 36.6 C 95 H 20 136/84 Pulse Ox 09/01/20 13:21 95 09/01/20 11:11 94 09/01/20 08:35 97 09/01/20 07:30 09/01/20 07:25 100 09/01/20 04:57 09/01/20 04:15 95 Laboratory Results Short CBC 08/31/20 09/01/20 Range/Units 16:00 05:46 WBC 8.81 6.37 (4.8-10.8) K/uL Hgb 13.4 L 13.8 L (14.0-18.0) g/dL Hct 42.4 44.6 (42-52) % Plt Count 387 404 H (130-400) K/uL BMP 08/31/20 09/01/20 16:00 05:46 Sodium 141 142 Potassium 3.8 4.9 D Chloride 104 104 Carbon Dioxide 31 34 H BUN 16 15 Creatinine 0.89 0.80 Glucose 108 H 117 H Calcium 10.1 9.0 Cardiac Enzymes 08/31/20 Range/Units 16:00 Troponin I 0.026 (0-0.045) ng/ml Liver Function 08/31/20 Range/Units 16:00 Total Bilirubin 0.7 (0.2-1) mg/dl AST 20 (15-37) U/L ALT 43 (12-78) U/L Alkaline Phosphatase 75 (45-117) U/L Albumin 2.7 L (3.4-5.0) gm/dl Medications Administered Current Inpatient Medications Acetaminophen (Acetaminophen 325 Mg Tab) 650 mg PO Q4H PRN PRN Reason: Pain or Fever Stop: 09/30/20 23:58 Acetylcysteine (Acetylcysteine 20% Inhal Soln 30ml) 3 ml INH BIDR [facility] Stop: 09/30/20 23:58 Last Admin: 09/01/20 07:01 Dose: Not Given Documented by: Bupropion HCl (Bupropion Sr 100 Mg Tabcr) 100 mg PO BID [facility] Stop: 09/30/20 23:58 Last Admin: 09/01/20 08:30 Dose: 100 mg Documented by: Enoxaparin Sodium (Enoxaparin Inj 30 Mg/0.3 Ml Syr) 30 mg SQ QAM [facility] Stop: 10/01/20 08:59 Last Admin: 09/01/20 08:30 Dose: 30 mg Documented by: Fluticasone Furoate (Fluticasone Furoate 200mcg 14 Puffs/Inhaler) 1 puffs INH HS [facility] Stop: 10/01/20 20:59 Fluticasone/Vilanterol (Fluticasone/Vilanterol 200/25mcg 14 Puffs/Inhaler) 1 puffs INH DAILY [facility] Stop: 10/01/20 08:59 Last Admin: 09/01/20 08:29 Dose: 1 puffs Documented by: Lactated Ringer's (Lr) 1,000 mls @ 50 mls/hr IV .Q20H ONE Stop: 09/01/20 19:58 Last Admin: 09/01/20 00:12 Dose: 50 mls/hr Documented by: Promethazine HCl 12.5 mg/ (Sodium Chloride) 50.5 mls @ 202 mls/hr IV Q6H PRN PRN Reason: Nausea And Vomiting Stop: 09/30/20 23:58 Multivitamins/Minerals (Calcium 600mg + Vit D 400 Iu Tab) 2 tab PO BID [facility] Stop: 10/01/20 08:59 Last Admin: 09/01/20 08:29 Dose: 2 tab Documented by: Tramadol HCl (Tramadol Hcl 50 Mg Tablet) 25 - 50 mg PO Q4H PRN PRN Reason: Pain Stop: 09/30/20 23:58
[2020-09-01] MEDS ORDERED: FLUTICASONE FUROATE 200MCG 14 PUFFS/INHALER INH SCH (21:00)
--- NOTE | 2020-09-02 05:41 | Electrocardiogram Report ---
Test Reason : Blood Pressure : / mmHG Vent. Rate : 098 BPM Atrial Rate : 098 BPM P-R Int : 202 ms QRS Dur : 080 ms QT Int : 344 ms P-R-T Axes : 070 110 048 degrees QTc Int : 439 ms Poor data quality, interpretation may be adversely affected Normal sinus rhythm Right axis deviation Abnormal ECG No previous ECGs available Confirmed by Fly Hudson ([id number]) on 09/02/2020 5:41:13 AM Referred By: REFERRED SELF Confirmed By:Fly Hudson
[2020-09-02 06:03] LABS: Basophils # (auto) 0.01 K/uL (0-0.2); Basophils % (auto) 0.1 %; Eosinophils # (auto) 0.11 K/uL (0-0.5); Eosinophils % (auto) 1.2 %; Hematocrit (blood only) 43.7 % (42-52); Hemoglobin 13.3 g/dL (14.0-18.0); Immature Granulocytes # (auto) 0.02 K/uL (0.00-0.02); Immature Granulocytes % (auto) 0.2 %; Lymphocytes # (auto) 1.28 K/uL (1.2-3.4); Lymphocytes % (auto) 14.1 %; Mean Corpuscular Hemoglobin 29.4 pg (25-34); Mean Corpuscular Hgb Conc 30.4 g/dL (32-36); Mean Corpuscular Volume 96.5 fL (80-100); Mean Platelet Volume 10.4 fL (7.4-10.4); Monocytes # (auto) 0.84 K/uL (0.11-0.59); Monocytes % (auto) 9.2 %; Neutrophils # (auto) 6.85 K/uL (1.4-6.5); Neutrophils % (auto) 75.2 %; Platelet Count 373 K/uL (130-400); RDW Coefficient of Variation 16.5 % (11.5-14.5); RDW Standard Deviation 57.7 fL (36.4-46.3); Red Blood Count 4.53 M/uL (4.7-6.1); White Blood Count 9.11 K/uL (4.8-10.8)
[2020-09-02 06:41] LABS: BUN Creatinine Ratio 15.3 (10-20); Calcium 9.3 mg/dl (8.5-10.1); Creatinine Clr Calc Pharmacy 79.2 ml/min; Est GFR (African American) 102.8; Est GFR (Non-African American) 88.7; Phosphorus 3.1 mg/dl (2.5-4.9); Potassium 4.1 mmol/L (3.5-5.1)
[2020-09-02] MEDS: ACETYLCYSTEINE 20% INHAL SOLN 30ML INH SCH ×2 (07:58→18:49)
[2020-09-02] MEDS: FLUTICASONE/VILANTEROL 200/25MCG 14 PUFFS/INHALER INH SCH (08:15)
[2020-09-02] MEDS: CALCIUM 600MG + VIT D 400 IU TAB PO SCH ×2 (08:16→20:54)
[2020-09-02] MEDS: buPROPion SR 100 MG TABCR PO SCH ×2 (08:16→20:54)
[2020-09-02] MEDS: ENOXAPARIN INJ 30 MG/0.3 ML SYR SQ SCH (08:16)
[2020-09-02] MEDS: methylPREDNISolone 60 MG in SYRINGE 0 ML IV SCH ×2 (11:05→18:05)
--- NOTE | 2020-09-02 14:34 | Hospitalist Progress Note ---
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(2 L at rest and 4 L with ambulation), pulmonary hypertension as per records Did not have the right dose of oxygen delivery system at home which made him more shortness of breath with hypoxemia Recent infection with Covid is complicating the oxygen requirement status He was sent into the emergency room from the [place] clinic Initially he required 15 L of oxygen to maintain saturation but since admission that level has gone down to 10 and sometimes below 10 Condition is again worse today and requiring high flow oxygen to maintain saturation Denies any fever and/or chills and could not tolerate hospital provided inhalers He was a started with intravenous Solu-Medrol and nebulized bronchodilators with Mucomyst Abnormal CT scan Nothing significant but worth to have a follow-up CTA reported as: 1. No evidence for acute pulmonary embolus. 2. Questionable small linear filling defect seen within the right middle lobe pulmonary artery favors heterogeneous opacification rather than a chronic pulmonary embolus. 3. Severe emphysema. 4. Partial mucoid opacification of a few the right middle and lower lobe bronchi. 5. Patchy densities within the base of the right middle lobe and right lower lobe. This could represent atelectasis or pneumonia. 6. Small peripheral nodular and groundglass densities within the left lung base as described above. This could be due to a mild pneumonitis. However, [address] follow-up recommended to ensure stability/resolution of these nodules. 7. Mild mediastinal and bilateral hilar lymphadenopathy. This also bears watching future examinations Doubt any active infection Mild QUINTIN (CPAP intolerance as per records) New onset anemia Hemoglobin more than 13.8 No symptoms of recent GI bleed Transient hematochezia from straining months back. Will not need any further work-up but preventive follow-up will be good Mood disorder as per records, at baseline No acute psychosis Past tobacco abuse. Quit smoking about 10 years back Social service RE assistance with procurement of durable medical equipment (home O2 w 8LPM capability) DVT prophylaxis Lovenox subcu DNR We will get PT and OT evaluation before discharge and to do steps before discharge Admission and Anticipated Discharge Date Admission Date: August 31, 2020 Subjective 09/01/2020 The patient was seen and examined in medical telemetry unit He was admitted with acute respiratory failure with hypoxia secondary to COPD exacerbation He did not have exact amount of oxygen delivery system for his COPD Has been feeling much better and requiring less oxygen compared with that of on admission 09/02/2020 The patient was seen and examined in medical telemetry unit He has been complaining of more shortness of breath since this morning He could not tolerate hospital provided inhaler which caused lower chest pain and discomfort Has been requiring 12 to 15 L of oxygen to maintain saturation Review of Systems Review of Systems: All systems reviewed and are unremarkable except as noted below Respiratory: + dyspnea; no dyspnea on exertion Physical Exam Physical Exam: Lying in bed with moderate to severe shortness of breath Constitutional: + ill appearing and average body habitus Eyes: PERRL, conjunctivae normal, anicteric sclerae ENMT: external ear and nose normal, oropharynx normal Neck: trachea midline, no thyromegaly Respiratory: + respiratory distress Auscultation: + diminished lung sounds and + wheezes (Occasional wheezing bilaterally) Cardiovascular: Rate/Rhythm: regular rate and regular rhythm Heart Sounds: no murmur Extremities: no edema Gastrointestinal (Abdomen): Inspection/Auscultation: normal bowel sounds; abdomen not distended Percussion/Palpation: abdomen soft; abdomen nontender Musculoskeletal: No acute arthritis in any joint Psychiatric: A+Ox3, euthymic affect Lymphatic: no cervical or axillary lymphadenopathy Results & Data Results & Data ([facility]) Vital Signs (Past 12 Hours) Vital Signs Temp Pulse Pulse Pulse Resp BP Pulse Ox 09/02/20 11:09 36.7 C 87 20 118/69 93 09/02/20 08:00 66 09/02/20 03:55 36.5 C 79 22 136/85 95 Pulse Ox 09/02/20 11:09 09/02/20 08:00 98 09/02/20 03:55 Laboratory Results Short CBC 09/02/20 Range/Units 05:48 WBC 9.11 (4.8-10.8) K/uL Hgb 13.3 L (14.0-18.0) g/dL Hct 43.7 (42-52) % Plt Count 373 (130-400) K/uL BMP 09/02/20 05:48 Sodium 143 Potassium 4.1 D Chloride 103 Carbon Dioxide 39 H BUN 13 Creatinine 0.84 Glucose 76 Calcium 9.3 Medications Administered Current Inpatient Medications Acetaminophen (Acetaminophen 325 Mg Tab) 650 mg PO Q4H PRN PRN Reason: Pain or Fever Stop: 09/30/20 23:58 Acetylcysteine (Acetylcysteine 20% Inhal Soln 30ml) 3 ml INH BIDR [facility] Stop: 09/30/20 23:58 Last Admin: 09/02/20 07:58 Dose: Not Given Documented by: Albuterol (Albut/Ipratrop 3mg/0.5mg Neb 3 Ml Vial) 3 ml NEB Q6H PRN PRN Reason: Shortness Of Breath Or Wheezing Stop: 10/02/20 09:14 Bupropion HCl (Bupropion Sr 100 Mg Tabcr) 100 mg PO BID [facility] Stop: 09/30/20 23:58 Last Admin: 09/02/20 08:16 Dose: 100 mg Documented by: Enoxaparin Sodium (Enoxaparin Inj 30 Mg/0.3 Ml Syr) 30 mg SQ QAM [facility] Stop: 10/01/20 08:59 Last Admin: 09/02/20 08:16 Dose: 30 mg Documented by: Promethazine HCl 12.5 mg/ (Sodium Chloride) 50.5 mls @ 202 mls/hr IV Q6H PRN PRN Reason: Nausea And Vomiting Stop: 09/30/20 23:58 Methylprednisolone 60 mg/ (Syringe) 0.96 mls @ 1.5 mls/min IV Q8H [facility] Stop: 10/02/20 09:14 Last Admin: 09/02/20 11:05 Dose: 1.5 mls/min Documented by: Multivitamins/Minerals (Calcium 600mg + Vit D 400 Iu Tab) 2 tab PO BID [facility] Stop: 10/01/20 08:59 Last Admin: 09/02/20 08:16 Dose: 2 tab Documented by: Tramadol HCl (Tramadol Hcl 50 Mg Tablet) 25 - 50 mg PO Q4H PRN PRN Reason: Pain Stop: 09/30/20 23:58
[2020-09-02] MEDS: ALBUT/IPRATROP 3MG/0.5MG NEB 3 ML VIAL NEB PRN (18:49)
[2020-09-03] MEDS: methylPREDNISolone 60 MG in SYRINGE 0 ML IV SCH ×3 (01:12→17:54)
[2020-09-03] MEDS: ALBUT/IPRATROP 3MG/0.5MG NEB 3 ML VIAL NEB PRN (07:07)
[2020-09-03] MEDS: ACETYLCYSTEINE 20% INHAL SOLN 30ML INH SCH (07:08)
[2020-09-03] MEDS: CALCIUM 600MG + VIT D 400 IU TAB PO SCH ×2 (08:29→19:46)
[2020-09-03] MEDS: buPROPion SR 100 MG TABCR PO SCH ×2 (08:29→19:46)
[2020-09-03] MEDS: ENOXAPARIN INJ 30 MG/0.3 ML SYR SQ SCH (08:29)
--- NOTE | 2020-09-03 11:47 | Hospitalist Progress Note ---
Date of Service September 03, 2020 Assessment & Plan (1) Acute respiratory failure with hypoxia: Acute on chronic hypoxemic respiratory failure secondary to COPD exacerbation H/O chronic respiratory failure secondary to COPD/ILD on home O2(2 L at rest and 4 L with ambulation), pulmonary hypertension as per records Did not have the right dose of oxygen delivery system at home which made him more shortness of breath with hypoxemia Recent infection with Covid is complicating the oxygen requirement status He was sent into the emergency room from the [place] clinic Initially he required 15 L of oxygen to maintain saturation but since admission that level has gone down to 10 and sometimes below 10 Condition is again worse today and requiring high flow oxygen to maintain saturation Denies any fever and/or chills and could not tolerate hospital provided inhalers He was a started with intravenous Solu-Medrol and nebulized bronchodilators with Mucomyst Little bit better today and requiring less oxygen, still at 8 L/min to maintain saturation We will discontinue Mucomyst We will restart his home budesonide Abnormal CT scan Nothing significant but worth to have a follow-up CTA reported as: 1. No evidence for acute pulmonary embolus. 2. Questionable small linear filling defect seen within the right middle lobe pulmonary artery favors heterogeneous opacification rather than a chronic pulmonary embolus. 3. Severe emphysema. 4. Partial mucoid opacification of a few the right middle and lower lobe bronchi. 5. Patchy densities within the base of the right middle lobe and right lower lobe. This could represent atelectasis or pneumonia. 6. Small peripheral nodular and groundglass densities within the left lung base as described above. This could be due to a mild pneumonitis. However, [address] follow-up recommended to ensure stability/resolution of these nodules. 7. Mild mediastinal and bilateral hilar lymphadenopathy. This also bears watching future examinations Doubt any active infection Mild QUINTIN (CPAP intolerance as per records) New onset anemia Hemoglobin more than 13.8 No symptoms of recent GI bleed Transient hematochezia from straining months back. Will not need any further work-up but preventive follow-up will be good Mood disorder as per records, at baseline No acute psychosis Past tobacco abuse. Quit smoking about 10 years back Social service RE assistance with procurement of durable medical equipment (home O2 w 8LPM capability) DVT prophylaxis Lovenox subcu DNR We will get PT and OT evaluation before discharge and to do steps before discharge Admission and Anticipated Discharge Date Admission Date: August 31, 2020 Subjective 09/01/2020 The patient was seen and examined in medical telemetry unit He was admitted with acute respiratory failure with hypoxia secondary to COPD exacerbation He did not have exact amount of oxygen delivery system for his COPD Has been feeling much better and requiring less oxygen compared with that of on admission 09/02/2020 The patient was seen and examined in medical telemetry unit He has been complaining of more shortness of breath since this morning He could not tolerate hospital provided inhaler which caused lower chest pain and discomfort Has been requiring 12 to 15 L of oxygen to maintain saturation 09/03/2020 The patient was seen and examined in medical telemetry unit He has been feeling a little bit better Complains to have some burning sensation across lower chest with one type of nebulized bronchodilator Denies any other symptoms and oxygen requirements has gone down to 8 L from 15 L Review of Systems Review of Systems: All systems reviewed and are unremarkable except as noted below Respiratory: + dyspnea; no dyspnea on exertion Physical Exam Physical Exam: Sitting on a chair with mild to moderate shortness of breath at rest Constitutional: + ill appearing and average body habitus Eyes: PERRL, conjunctivae normal, anicteric sclerae ENMT: external ear and nose normal, oropharynx normal Neck: trachea midline, no thyromegaly Respiratory: + respiratory distress Auscultation: + diminished lung sounds (Hardly any airflow in the lungs with breathing); no wheezes (Occasional wheezing bilaterally) Cardiovascular: Rate/Rhythm: regular rate and regular rhythm Heart Sounds: no murmur Extremities: no edema Gastrointestinal (Abdomen): Inspection/Auscultation: normal bowel sounds; abdomen not distended Percussion/Palpation: abdomen soft; abdomen nontender Musculoskeletal: No acute arthritis in any joint Neurologic: Alert, awake and oriented x3. Generally very weak and lethargic Psychiatric: A+Ox3, euthymic affect Lymphatic: no cervical or axillary lymphadenopathy Results & Data Results & Data ([facility]) Vital Signs (Past 12 Hours) Vital Signs Temp Pulse Pulse Pulse Resp BP BP 09/03/20 07:52 36.8 C 09/03/20 07:47 79 20 136/82 09/03/20 07:14 70 09/03/20 07:08 81 18 09/03/20 02:56 36.9 C 80 18 112/70 09/02/20 23:51 36.6 C 85 18 110/64 Pulse Ox 09/03/20 07:52 09/03/20 07:47 95 09/03/20 07:14 09/03/20 07:08 95 09/03/20 02:56 92 09/02/20 23:51 92 Medications Administered Current Inpatient Medications Acetaminophen (Acetaminophen 325 Mg Tab) 650 mg PO Q4H PRN PRN Reason: Pain or Fever Stop: 09/30/20 23:58 Albuterol (Albut/Ipratrop 3mg/0.5mg Neb 3 Ml Vial) 3 ml NEB Q6H PRN PRN Reason: Shortness Of Breath Or Wheezing Stop: 10/02/20 09:14 Last Admin: 09/03/20 07:07 Dose: 3 ml Documented by: Bupropion HCl (Bupropion Sr 100 Mg Tabcr) 100 mg PO BID [facility] Stop: 09/30/20 23:58 Last Admin: 09/03/20 08:29 Dose: 100 mg Documented by: Enoxaparin Sodium (Enoxaparin Inj 30 Mg/0.3 Ml Syr) 30 mg SQ QAM [facility] Stop: 10/01/20 08:59 Last Admin: 09/03/20 08:29 Dose: 30 mg Documented by: Promethazine HCl 12.5 mg/ (Sodium Chloride) 50.5 mls @ 202 mls/hr IV Q6H PRN PRN Reason: Nausea And Vomiting Stop: 09/30/20 23:58 Methylprednisolone 60 mg/ (Syringe) 0.96 mls @ 1.5 mls/min IV Q8H [facility] Stop: 10/02/20 09:14 Last Admin: 09/03/20 10:20 Dose: 1.5 mls/min Documented by: Multivitamins/Minerals (Calcium 600mg + Vit D 400 Iu Tab) 2 tab PO BID [facility] Stop: 10/01/20 08:59 Last Admin: 09/03/20 08:29 Dose: 2 tab Documented by: Tramadol HCl (Tramadol Hcl 50 Mg Tablet) 25 - 50 mg PO Q4H PRN PRN Reason: Pain Stop: 09/30/20 23:58
[2020-09-03] MEDS: FLUTICASONE/VILANTEROL 100/25MCG 14 PUFFS/INHALER INH SCH (12:49)
[2020-09-03] MEDS: UMECLIDINIUM BROMIDE 62.5MCG/BLISTER 7 PUFFS/INHALER INH SCH (12:49)
[2020-09-04] MEDS: methylPREDNISolone 60 MG in SYRINGE 0 ML IV SCH ×3 (02:22→21:38)
[2020-09-04] MEDS: CALCIUM 600MG + VIT D 400 IU TAB PO SCH ×2 (08:40→21:38)
[2020-09-04] MEDS: FLUTICASONE/VILANTEROL 100/25MCG 14 PUFFS/INHALER INH SCH (08:40)
[2020-09-04] MEDS: buPROPion SR 100 MG TABCR PO SCH ×2 (08:40→21:37)
[2020-09-04] MEDS: UMECLIDINIUM BROMIDE 62.5MCG/BLISTER 7 PUFFS/INHALER INH SCH (08:41)
[2020-09-04] MEDS: ENOXAPARIN INJ 30 MG/0.3 ML SYR SQ SCH (08:41)
[2020-09-04] MEDS ORDERED: FLUTICASONE/VILANTEROL 100/25MCG 14 PUFFS/INHALER INH SCH (09:00)
--- NOTE | 2020-09-04 10:26 | Hospitalist Progress Note ---
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(2 L at rest and 4 L with ambulation), pulmonary hypertension as per records Did not have the right dose of oxygen delivery system at home which made him more shortness of breath with hypoxemia Recent infection with Covid is complicating the oxygen requirement status He was sent into the emergency room from the [place] clinic Initially he required 15 L of oxygen to maintain saturation but since admission that level has gone down to 10 and sometimes below 10 Condition is again worse today and requiring high flow oxygen to maintain saturation Denies any fever and/or chills and could not tolerate hospital provided inhalers Clinically much better today and his home inhalers have been restarted We will continue current medications and decrease Solu-Medrol to twice daily Abnormal CT scan Nothing significant but worth to have a follow-up CTA reported as: 1. No evidence for acute pulmonary embolus. 2. Questionable small linear filling defect seen within the right middle lobe pulmonary artery favors heterogeneous opacification rather than a chronic pulmonary embolus. 3. Severe emphysema. 4. Partial mucoid opacification of a few the right middle and lower lobe bronchi. 5. Patchy densities within the base of the right middle lobe and right lower lobe. This could represent atelectasis or pneumonia. 6. Small peripheral nodular and groundglass densities within the left lung base as described above. This could be due to a mild pneumonitis. However, [address] follow-up recommended to ensure stability/resolution of these nodules. 7. Mild mediastinal and bilateral hilar lymphadenopathy. This also bears watching future examinations Doubt any active infection Mild QUINTIN (CPAP intolerance as per records) New onset anemia Hemoglobin more than 13.8 No symptoms of recent GI bleed Transient hematochezia from straining months back. Will not need any further work-up but preventive follow-up will be good Monitor CBC Mood disorder as per records, at baseline No acute psychosis Past tobacco abuse. Quit smoking about 10 years back Social service RE assistance with procurement of durable medical equipment (home O2 w 8LPM capability) DVT prophylaxis Lovenox subcu DNR We will get PT and OT evaluation before discharge and to do steps before discharge Possible discharge on Sunday Admission and Anticipated Discharge Date Admission Date: August 31, 2020 Subjective 09/01/2020 The patient was seen and examined in medical telemetry unit He was admitted with acute respiratory failure with hypoxia secondary to COPD exacerbation He did not have exact amount of oxygen delivery system for his COPD Has been feeling much better and requiring less oxygen compared with that of on admission 09/02/2020 The patient was seen and examined in medical telemetry unit He has been complaining of more shortness of breath since this morning He could not tolerate hospital provided inhaler which caused lower chest pain and discomfort Has been requiring 12 to 15 L of oxygen to maintain saturation 09/03/2020 The patient was seen and examined in medical telemetry unit He has been feeling a little bit better Complains to have some burning sensation across lower chest with one type of nebulized bronchodilator Denies any other symptoms and oxygen requirements has gone down to 8 L from 15 L 09/04/2020 The patient was seen and examined in medical telemetry unit He has been feeling much better today and requiring less oxygen to maintain saturation Still gets more shortness of breath with ambulation Denies any other significant symptoms Review of Systems Review of Systems: All systems reviewed and are unremarkable except as noted below Respiratory: + dyspnea and + dyspnea on exertion Physical Exam Physical Exam: Sitting on a chair with mild to moderate shortness of breath at rest Constitutional: average body habitus; not ill appearing Eyes: PERRL, conjunctivae normal, anicteric sclerae ENMT: external ear and nose normal, oropharynx normal Neck: trachea midline, no thyromegaly Respiratory: + respiratory distress Auscultation: + diminished lung sounds (Hardly any airflow in the lungs with breathing); no wheezes (Occasional wheezing bilaterally) Cardiovascular: Rate/Rhythm: regular rate and regular rhythm Heart Sounds: no murmur Extremities: no edema Gastrointestinal (Abdomen): Inspection/Auscultation: normal bowel sounds; abdomen not distended Percussion/Palpation: abdomen soft; abdomen nontender Musculoskeletal: No acute arthritis in any joint Neurologic: Alert, awake and oriented x3. No focal sensory and motor deficit appreciated Psychiatric: A+Ox3, euthymic affect Lymphatic: no cervical or axillary lymphadenopathy Results & Data Results & Data ([facility]) Vital Signs (Past 12 Hours) Vital Signs Temp Pulse Pulse Resp BP BP Pulse Ox 09/04/20 07:15 36.6 C 81 20 131/79 97 09/04/20 04:22 36.4 C L 78 20 126/77 92 09/04/20 01:57 85 09/03/20 23:11 36.9 C 84 20 132/75 95 Medications Administered Current Inpatient Medications Acetaminophen (Acetaminophen 325 Mg Tab) 650 mg PO Q4H PRN PRN Reason: Pain or Fever Stop: 09/30/20 23:58 Albuterol (Albut/Ipratrop 3mg/0.5mg Neb 3 Ml Vial) 3 ml NEB Q6H PRN PRN Reason: Shortness Of Breath Or Wheezing Stop: 10/02/20 09:14 Last Admin: 09/03/20 07:07 Dose: 3 ml Documented by: Bupropion HCl (Bupropion Sr 100 Mg Tabcr) 100 mg PO BID [facility] Stop: 09/30/20 23:58 Last Admin: 09/04/20 08:40 Dose: 100 mg Documented by: Enoxaparin Sodium (Enoxaparin Inj 30 Mg/0.3 Ml Syr) 30 mg SQ QAM [facility] Stop: 10/01/20 08:59 Last Admin: 09/04/20 08:41 Dose: 30 mg Documented by: Fluticasone/Vilanterol (Fluticasone/Vilanterol 100/25mcg 14 Puffs/Inhaler) 1 puffs INH DAILY [facility] Stop: 10/03/20 11:59 Last Admin: 09/04/20 08:40 Dose: 1 puffs Documented by: Promethazine HCl 12.5 mg/ (Sodium Chloride) 50.5 mls @ 202 mls/hr IV Q6H PRN PRN Reason: Nausea And Vomiting Stop: 09/30/20 23:58 Methylprednisolone 60 mg/ (Syringe) 0.96 mls @ 1.5 mls/min IV Q8H [facility] Stop: 10/02/20 09:14 Last Admin: 09/04/20 09:57 Dose: 1.5 mls/min Documented by: Multivitamins/Minerals (Calcium 600mg + Vit D 400 Iu Tab) 2 tab PO BID [facility] Stop: 10/01/20 08:59 Last Admin: 09/04/20 08:40 Dose: 2 tab Documented by: Tramadol HCl (Tramadol Hcl 50 Mg Tablet) 25 - 50 mg PO Q4H PRN PRN Reason: Pain Stop: 09/30/20 23:58 Umeclidinium [place] (Umeclidinium [place] 62.5mcg/Blister 7 Puffs/Inhaler) 1 puffs INH QAM [facility] Stop: 10/03/20 11:59 Last Admin: 09/04/20 08:41 Dose: 1 puffs Documented by:
[2020-09-05 06:46] LABS: Hematocrit (blood only) 42.8 % (42-52); Hemoglobin 13.2 g/dL (14.0-18.0); Immature Granulocytes # (auto) 0.02 K/uL (0.00-0.02); Immature Granulocytes % (auto) 0.2 %; Lymphocytes # (auto) 0.61 K/uL (1.2-3.4); Lymphocytes % (auto) 5.6 %; Mean Corpuscular Hemoglobin 29.3 pg (25-34); Mean Corpuscular Hgb Conc 30.8 g/dL (32-36); Mean Corpuscular Volume 95.1 fL (80-100); Mean Platelet Volume 10.8 fL (7.4-10.4); Monocytes # (auto) 0.59 K/uL (0.11-0.59); Monocytes % (auto) 5.4 %; Neutrophils # (auto) 9.68 K/uL (1.4-6.5); Neutrophils % (auto) 88.8 %; Platelet Count 378 K/uL (130-400); RDW Coefficient of Variation 16.4 % (11.5-14.5); RDW Standard Deviation 55.9 fL (36.4-46.3)
[2020-09-05 07:19] LABS: BUN Creatinine Ratio 38.4 (10-20); Calcium 8.6 mg/dl (8.5-10.1); Creatinine Clr Calc Pharmacy 120.9 ml/min; Est GFR (African American) 122.4; Est GFR (Non-African American) 105.6; Potassium 4.2 mmol/L (3.5-5.1)
[2020-09-05] MEDS: UMECLIDINIUM BROMIDE 62.5MCG/BLISTER 7 PUFFS/INHALER INH SCH (07:30)
[2020-09-05] MEDS: buPROPion SR 100 MG TABCR PO SCH ×2 (07:32→21:24)
[2020-09-05] MEDS: CALCIUM 600MG + VIT D 400 IU TAB PO SCH ×2 (07:32→21:25)
[2020-09-05] MEDS: ENOXAPARIN INJ 30 MG/0.3 ML SYR SQ SCH (07:33)
[2020-09-05] MEDS: FLUTICASONE/VILANTEROL 100/25MCG 14 PUFFS/INHALER INH SCH (07:36)
[2020-09-05] MEDS: methylPREDNISolone 60 MG in SYRINGE 0 ML IV SCH ×2 (09:39→21:47)
--- NOTE | 2020-09-05 10:53 | Hospitalist Progress Note ---
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(2 L at rest and 4 L with ambulation), pulmonary hypertension as per records Did not have the right dose of oxygen delivery system at home which made him more shortness of breath with hypoxemia Recent infection with Covid is complicating the oxygen requirement status He was sent into the emergency room from the [place] clinic Initially he required 15 L of oxygen to maintain saturation but since admission that level has gone down to 10 and sometimes below 10 Condition is again worse today and requiring high flow oxygen to maintain saturation Denies any fever and/or chills and could not tolerate hospital provided inhalers Clinically much better today and his home inhalers have been restarted We will continue current medications and decrease Solu-Medrol to twice daily He is back to his baseline Likely discharge tomorrow with tapering dose of prednisone He may need new oxygen supplier at home Abnormal CT scan Nothing significant but worth to have a follow-up CTA reported as: 1. No evidence for acute pulmonary embolus. 2. Questionable small linear filling defect seen within the right middle lobe pulmonary artery favors heterogeneous opacification rather than a chronic pulmonary embolus. 3. Severe emphysema. 4. Partial mucoid opacification of a few the right middle and lower lobe bronchi. 5. Patchy densities within the base of the right middle lobe and right lower lobe. This could represent atelectasis or pneumonia. 6. Small peripheral nodular and groundglass densities within the left lung base as described above. This could be due to a mild pneumonitis. However, [address] follow-up recommended to ensure stability/resolution of these nodules. 7. Mild mediastinal and bilateral hilar lymphadenopathy. This also bears watching future examinations Doubt any active infection Mild QUINTIN (CPAP intolerance as per records) Does not use any CPAP and/or BiPAP New onset anemia Hemoglobin more than 13.8 No symptoms of recent GI bleed Transient hematochezia from straining months back. Will not need any further work-up but preventive follow-up will be good Monitor CBC Mood disorder as per records, at baseline No acute psychosis Past tobacco abuse. Quit smoking about 10 years back Social service RE assistance with procurement of durable medical equipment (home O2 w 8LPM capability) DVT prophylaxis Lovenox subcu DNR We will get PT and OT evaluation before discharge and to do steps before discharge Possible discharge on Sunday Admission and Anticipated Discharge Date Admission Date: August 31, 2020 Subjective 09/01/2020 The patient was seen and examined in medical telemetry unit He was admitted with acute respiratory failure with hypoxia secondary to COPD exacerbation He did not have exact amount of oxygen delivery system for his COPD Has been feeling much better and requiring less oxygen compared with that of on admission 09/02/2020 The patient was seen and examined in medical telemetry unit He has been complaining of more shortness of breath since this morning He could not tolerate hospital provided inhaler which caused lower chest pain and discomfort Has been requiring 12 to 15 L of oxygen to maintain saturation 09/03/2020 The patient was seen and examined in medical telemetry unit He has been feeling a little bit better Complains to have some burning sensation across lower chest with one type of nebulized bronchodilator Denies any other symptoms and oxygen requirements has gone down to 8 L from 15 L 09/04/2020 The patient was seen and examined in medical telemetry unit He has been feeling much better today and requiring less oxygen to maintain saturation Still gets more shortness of breath with ambulation Denies any other significant symptoms 09/05/2020 The patient was seen and examined in medical telemetry unit He remains stable and requiring about 4 to 6 L of oxygen to maintain saturation Denies any significant symptoms except ongoing shortness of breath Review of Systems Review of Systems: All systems reviewed and are unremarkable except as noted below Respiratory: + dyspnea and + dyspnea on exertion Physical Exam Physical Exam: Sitting on a chair with mild to moderate shortness of breath at rest Constitutional: average body habitus; not ill appearing Eyes: PERRL, conjunctivae normal, anicteric sclerae ENMT: external ear and nose normal, oropharynx normal Neck: trachea midline, no thyromegaly Respiratory: no respiratory distress (No respiratory distress at rest) Auscultation: + diminished lung sounds (Hardly any airflow in the lungs with breathing); no wheezes (Occasional wheezing bilaterally) Cardiovascular: Rate/Rhythm: regular rate and regular rhythm Heart Sounds: no murmur Extremities: no edema Gastrointestinal (Abdomen): Inspection/Auscultation: normal bowel sounds; abdomen not distended Percussion/Palpation: abdomen soft; abdomen nontender Musculoskeletal: No acute arthritis in any joint Neurologic: No focal sensory and motor deficit appreciated Psychiatric: A+Ox3, euthymic affect Lymphatic: no cervical or axillary lymphadenopathy Results & Data Results & Data ([facility]) Vital Signs (Past 12 Hours) Vital Signs Temp Pulse Pulse Pulse Resp BP BP 09/05/20 09:15 65 09/05/20 07:49 36.5 C 69 20 129/76 09/05/20 03:37 36.4 C L 80 24 129/78 09/05/20 00:17 89 09/04/20 23:00 36.7 C 92 H 24 125/72 Pulse Ox 09/05/20 09:15 09/05/20 07:49 95 09/05/20 03:37 98 09/05/20 00:17 09/04/20 23:00 91 Laboratory Results Short CBC 09/05/20 Range/Units 06:29 WBC 10.90 H (4.8-10.8) K/uL Hgb 13.2 L (14.0-18.0) g/dL Hct 42.8 (42-52) % Plt Count 378 (130-400) K/uL BMP 09/05/20 06:29 Sodium 141 Potassium 4.2 Chloride 105 Carbon Dioxide 34 H BUN 21 H Creatinine 0.55 L Glucose 100 H Calcium 8.6 Medications Administered Current Inpatient Medications Acetaminophen (Acetaminophen 325 Mg Tab) 650 mg PO Q4H PRN PRN Reason: Pain or Fever Stop: 09/30/20 23:58 Albuterol (Albut/Ipratrop 3mg/0.5mg Neb 3 Ml Vial) 3 ml NEB Q6H PRN PRN Reason: Shortness Of Breath Or Wheezing Stop: 10/02/20 09:14 Last Admin: 09/03/20 07:07 Dose: 3 ml Documented by: Bupropion HCl (Bupropion Sr 100 Mg Tabcr) 100 mg PO BID [facility] Stop: 09/30/20 23:58 Last Admin: 09/05/20 07:32 Dose: 100 mg Documented by: Enoxaparin Sodium (Enoxaparin Inj 30 Mg/0.3 Ml Syr) 30 mg SQ QAM [facility] Stop: 10/01/20 08:59 Last Admin: 09/05/20 07:33 Dose: 30 mg Documented by: Fluticasone/Vilanterol (Fluticasone/Vilanterol 100/25mcg 14 Puffs/Inhaler) 1 puffs INH DAILY [facility] Stop: 10/03/20 11:59 Last Admin: 09/05/20 07:36 Dose: 1 puffs Documented by: Promethazine HCl 12.5 mg/ (Sodium Chloride) 50.5 mls @ 202 mls/hr IV Q6H PRN PRN Reason: Nausea And Vomiting Stop: 09/30/20 23:58 Methylprednisolone 60 mg/ (Syringe) 0.96 mls @ 1.5 mls/min IV Q12H [facility] Stop: 10/04/20 21:59 Last Admin: 09/05/20 09:39 Dose: 1.5 mls/min Documented by: Multivitamins/Minerals (Calcium 600mg + Vit D 400 Iu Tab) 2 tab PO BID [facility] Stop: 10/01/20 08:59 Last Admin: 09/05/20 07:32 Dose: 2 tab Documented by: Tramadol HCl (Tramadol Hcl 50 Mg Tablet) 25 - 50 mg PO Q4H PRN PRN Reason: Pain Stop: 09/30/20 23:58 Umeclidinium [place] (Umeclidinium [place] 62.5mcg/Blister 7 Puffs/Inhaler) 1 puffs INH QAM [facility] Stop: 10/03/20 11:59 Last Admin: 09/05/20 07:30 Dose: 1 puffs Documented by:
[2020-09-06] MEDS: ENOXAPARIN INJ 30 MG/0.3 ML SYR SQ SCH (08:48)
[2020-09-06] MEDS: CALCIUM 600MG + VIT D 400 IU TAB PO SCH ×2 (08:48→20:31)
[2020-09-06] MEDS: methylPREDNISolone 60 MG in SYRINGE 0 ML IV SCH ×2 (08:48→20:32)
[2020-09-06] MEDS: buPROPion SR 100 MG TABCR PO SCH ×2 (08:48→20:31)
[2020-09-06] MEDS: FLUTICASONE/VILANTEROL 100/25MCG 14 PUFFS/INHALER INH SCH (09:00)
[2020-09-06] MEDS: UMECLIDINIUM BROMIDE 62.5MCG/BLISTER 7 PUFFS/INHALER INH SCH (09:00)
--- NOTE | 2020-09-06 14:27 | Pulmonary Consultation ---
Date of Consultation September 06, 2020 Assessment & Plan (1) COPD (chronic obstructive pulmonary disease): Patient is a 70 year old male with PMHx COPD, QUINTIN, Recent COVID-19 pneumonia, home O2 use, and pulmonary hypertension who presented initially for concerns of hypoxia while on oxygen therapy. Severe COPD (likely GOLD group D) with Acute on Chronic Hypoxemic Respiratory Failure -Requiring greater oxygen since recent COVID-19 Pneumonia, base O2 use was 2-4L prior to pneumonia -With 94 pack year history -Would continue patient's Symbicort and Spiriva -Will order for Echo to check patient's pulmonary hypertension -Will check a Pro-BNP as well, though no obvious signs of CHF -Will give empiric dose of 20mg IV lasix now -O2 NC titrate >90% -Would start to wean steroids -Would recommend CPAP qhs -Patient may be a good candidate for Trelegy upon discharge. Thank you for allowing us to assist in the care of this patient. Please see attending attestation for further recommendations and corrections. Supervising Physician Co-Signing Physician Notes Dr. Hoyt was the resident-physician during care of patient. I generally agree with the findings and plan except for any additions/exceptions noted. 70-year-old male with a past medical history of tobacco abuse, chronic hypoxemic respiratory failure and severe COPD resenting to the hospital due to hypoxia. He is followed by Dr. Schuler who is an outpatient traffic clerk at the [facility]. He has a history of severe airflow obstruction with an FEV1 of 28% predicted. CT chest personally reviewed on 08/31/2020 which demonstrated severe upper lobe predominant centrilobular emphysema with increased interstitial markings in the lower lung abreu likely secondary to crowding of vessels and interstitium. Underlying interstitial lung disease such as combined pulmonary fibrosis/emphysema is difficult to rule out. Nontuberculous Mycobacterium may be playing a factor as well. Will defer bronchoscopy at this time given his severe underlying chronic hypercapnic and hypoxemic respiratory failure. A trial of noninvasive ventilation may be warranted as this may improve his respiratory status and decrease hospital admissions as compared to CPAP which he uses at home. Echocardiogram is recommended to evaluate for secondary pulmonary hypertension (WHO group 3). Would recommend a trial dose of diuretics to improve dyspnea and hypoxemia. Continue inhaler regimen. He is on 2 forms of ICS which may be an effort to maximally bronchodilator the patient. I would recommend against using 2 forms of ICS inhalers as this does potentially increase his risk of developing pneumonia. Palliative care consultation can be considered as well given his essentially end-stage lung disease. Thank you for the consult. Pulmonary will continue to follow along with you. Please call with questions. History of Present Illness Reason for Consultation: COPD Attending Physician: Valentina Ndiaye MD History of Present Illness Patient is a 70 year old male with PMHx COPD, QUINTIN, Recent COVID-19 pneumonia, home O2 use, and pulmonary hypertension who presented initially for concerns of hypoxia while on oxygen therapy. Pulmonology is consulted for assistance in management of patients severe COPD and hypoxia. Patient notes that at home he had been on oxygen therapy for the past 10 years at 2-4L baseline. He notes that this was started after a pneumonia in addition to smoking 2PPD x 47 years. He notes that in late June he contracted COVID-19 and was admitted for COVID-19 associated Pneumonia until his discharge 07/27/20/ He states that upon leaving he was instructed to use 4-6L of O2 NC in replacement of his home 2-4L. He then saw his PCP since his machine only went up to 5L max and was instructed to start with 8L NC x2 weeks. Again his machine was unable to do so and he presented to [facility] where he was found to be hypoxic in the O2 sats 70's while on 4L. He was then admitted and has been started on methylprednisone which has improved his shortness of breath. He notes currently that while seated he feels comfortable. Patient is currently 94% on 6L NC. He notes that when he moves though he becomes rapidly short of breath. He states that at home he uses his albuterol inhaler up to 10x/week for similar symptoms. He occasionally will also put on his CPAP during the day to help his dyspnea. He denies any fever, chills, chest pain, abdominal pain, nausea, vomiting, diarrhea, swelling. He has been seeing Dr. Schuler in [place] for his pulmonary care. Allergies Allergy/AdvReac Type Severity Reaction Status Date / Time No Known Allergies Allergy Verified 08/31/20 16:45 Home Medications Medication Instructions Recorded Confirmed Type acetylcysteine 3 ml INHALATION BID 08/31/20 08/31/20 History albuterol sulfate 2 puff INHALATION Q4H PRN 08/31/20 08/31/20 History albuterol sulfate 2.5 mg INHALATION QID PRN 08/31/20 08/31/20 History alendronate 70 mg PO WK 08/31/20 08/31/20 History budesonide-formoterol 2 puff INHALATION BID 08/31/20 08/31/20 History bupropion HCl 100 mg PO BID 08/31/20 08/31/20 History calcium carbonate-vitamin D3 2 tab PO BID 08/31/20 08/31/20 History [Calcium 500 + D] mometasone 3 inh INHALATION HS 08/31/20 08/31/20 History montelukast [Singulair] 10 mg PO DAILY 08/31/20 08/31/20 History omega 9-[id number]-[id number]-fish oil [Fish Oil] 2 cap PO DAILY 08/31/20 08/31/20 History prednisone 40 mg PO DAILY PRN 08/31/20 08/31/20 History sildenafil 100 mg PO DAILY PRN 08/31/20 08/31/20 History tiotropium bromide 1 cap INHALATION DAILY 08/31/20 08/31/20 History Patient History Medical History (Updated 09/06/20 @ 14:24 by Alejandro Hoyt DO) COPD (chronic obstructive pulmonary disease) COVID-19 Social History Smoking Status: Former smoker Smoking End Date: 7 yrs ago; Hx Alcohol Use: No Hx Substance Use: No Preferred Language: Lithuanian Communication Ability: Effective Current Living Situation: Spouse Other Information That Helps Us Care for You: No Feels Safe at Home: Yes Assistive Devices: Glasses, Oxygen - Continuous and Walker Review of Systems Review of Systems: All systems reviewed & are unremarkable except as noted in Subjective Physical Exam Constitutional: + frail appearing and cooperative; no acute distress Eyes: PERRL, conjunctivae normal, anicteric sclerae ENMT: external ear and nose normal, oropharynx normal NC in place, 6L flow Neck: trachea midline, no thyromegaly Respiratory: no respiratory distress and no labored breathing Auscultation: + diminished lung sounds (b/l ); no crackles and no rales Cardiovascular: RRR, no murmur, no edema Gastrointestinal (Abdomen): normal bowel sounds, soft, nontender, no hepatosplenomegaly Skin: no rashes, warm and dry Psychiatric: A+Ox3, euthymic affect Results & Data Results & Data ([facility]) Vital Signs (Past 12 Hours) Vital Signs Temp Pulse Pulse Pulse Pulse Pulse Pulse 09/06/20 11:18 36.8 C 09/06/20 09:48 94 H 96 H 96 H 97 H 97 H 09/06/20 09:00 74 09/06/20 07:46 36.7 C 09/06/20 04:45 36.9 C Pulse Pulse Resp Resp Resp Resp Resp 09/06/20 11:18 87 20 09/06/20 09:48 96 H 18 18 17 20 09/06/20 09:00 09/06/20 07:46 71 20 09/06/20 04:45 75 24 Resp Resp BP Pulse Ox Pulse Ox Pulse Ox Pulse Ox 09/06/20 11:18 152/83 H 95 09/06/20 09:48 16 18 87 L 88 L 90 09/06/20 09:00 09/06/20 07:46 156/87 H 96 09/06/20 04:45 143/77 H 96 Pulse Ox Pulse Ox Pulse Ox 09/06/20 11:18 09/06/20 09:48 84 L 76 L 87 L 09/06/20 09:00 09/06/20 07:46 09/06/20 04:45 Resident Activity Tracking Resident Involvement: Resident Care Provided Care Provided: Adult Hospital Medicine
--- NOTE | 2020-09-06 15:00 | Hospitalist Progress Note ---
Date of Service September 06, 2020 Assessment & Plan (1) Acute respiratory failure with hypoxia: Acute on chronic hypoxemic respiratory failure secondary to COPD exacerbation H/O chronic respiratory failure secondary to COPD/ILD on home O2(2 L at rest and 4 L with ambulation), pulmonary hypertension as per records Did not have the right dose of oxygen delivery system at home which made him more shortness of breath with hypoxemia Recent infection with Covid is complicating the oxygen requirement status He was sent into the emergency room from the [place] clinic Initially he required 15 L of oxygen to maintain saturation but since admission that level has gone down to 10 and sometimes below 10 Condition is again worse today and requiring high flow oxygen to maintain saturation Denies any fever and/or chills and could not tolerate hospital provided inhalers Clinically much better today and his home inhalers have been restarted We will continue current medications and decrease Solu-Medrol to twice daily He is back to his baseline at rest and has been getting shortness of breath with desaturation with minimal activity Could not do the 2 steps O2 saturation test due to increasing shortness of breath Discussed with the supply chain systems manager and he will be evaluated by him We will continue current management for now Abnormal CT scan Nothing significant but worth to have a follow-up CTA reported as: 1. No evidence for acute pulmonary embolus. 2. Questionable small linear filling defect seen within the right middle lobe pulmonary artery favors heterogeneous opacification rather than a chronic pulmonary embolus. 3. Severe emphysema. 4. Partial mucoid opacification of a few the right middle and lower lobe bronchi. 5. Patchy densities within the base of the right middle lobe and right lower lobe. This could represent atelectasis or pneumonia. 6. Small peripheral nodular and groundglass densities within the left lung base as described above. This could be due to a mild pneumonitis. However, [address] follow-up recommended to ensure stability/resolution of these nodules. 7. Mild mediastinal and bilateral hilar lymphadenopathy. This also bears watching future examinations Doubt any active infection Mild QUINTIN (CPAP intolerance as per records) Does not use any CPAP and/or BiPAP New onset anemia Hemoglobin more than 13.8 No symptoms of recent GI bleed Transient hematochezia from straining months back. Will not need any further work-up but preventive follow-up will be good Monitor CBC Mood disorder as per records, at baseline No acute psychosis Past tobacco abuse. Quit smoking about 10 years back Social service RE assistance with procurement of durable medical equipment (home O2 w 8LPM capability) DVT prophylaxis Lovenox subcu DNR We will get PT and OT evaluation before discharge and to do steps before discharge Possible discharge in a day or 2 Admission and Anticipated Discharge Date Admission Date: August 31, 2020 Subjective 09/01/2020 The patient was seen and examined in medical telemetry unit He was admitted with acute respiratory failure with hypoxia secondary to COPD exacerbation He did not have exact amount of oxygen delivery system for his COPD Has been feeling much better and requiring less oxygen compared with that of on admission 09/02/2020 The patient was seen and examined in medical telemetry unit He has been complaining of more shortness of breath since this morning He could not tolerate hospital provided inhaler which caused lower chest pain and discomfort Has been requiring 12 to 15 L of oxygen to maintain saturation 09/03/2020 The patient was seen and examined in medical telemetry unit He has been feeling a little bit better Complains to have some burning sensation across lower chest with one type of nebulized bronchodilator Denies any other symptoms and oxygen requirements has gone down to 8 L from 15 L 09/04/2020 The patient was seen and examined in medical telemetry unit He has been feeling much better today and requiring less oxygen to maintain saturation Still gets more shortness of breath with ambulation Denies any other significant symptoms 09/05/2020 The patient was seen and examined in medical telemetry unit He remains stable and requiring about 4 to 6 L of oxygen to maintain saturation Denies any significant symptoms except ongoing shortness of breath 09/06/2020 The patient was seen and examined in medical telemetry unit He remains stable at rest and requiring about 4 L of oxygen to maintain saturation Any activity and even out of bed, the saturation drops dramatically to around 70s He has been waiting to go home Review of Systems Review of Systems: All systems reviewed and are unremarkable except as noted below Respiratory: + dyspnea and + dyspnea on exertion Physical Exam Physical Exam: Sitting on a chair with mild to moderate shortness of breath at rest Constitutional: average body habitus; not ill appearing Eyes: PERRL, conjunctivae normal, anicteric sclerae ENMT: external ear and nose normal, oropharynx normal Neck: trachea midline, no thyromegaly Respiratory: no respiratory distress (No respiratory distress at rest) Auscultation: + diminished lung sounds (Hardly any airflow in the lungs with breathing); no wheezes (Occasional wheezing bilaterally) Cardiovascular: Rate/Rhythm: regular rate and regular rhythm Heart Sounds: no murmur Extremities: no edema Gastrointestinal (Abdomen): Inspection/Auscultation: normal bowel sounds; abdomen not distended Percussion/Palpation: abdomen soft; abdomen nontender Musculoskeletal: No acute arthritis involving any joint Psychiatric: A+Ox3, euthymic affect Lymphatic: no cervical or axillary lymphadenopathy Results & Data Results & Data ([facility]) Vital Signs (Past 12 Hours) Vital Signs Temp Pulse Pulse Pulse Pulse Pulse Pulse 09/06/20 11:18 36.8 C 09/06/20 09:48 94 H 96 H 96 H 97 H 97 H 09/06/20 09:00 74 09/06/20 07:46 36.7 C 09/06/20 04:45 36.9 C Pulse Pulse Resp Resp Resp Resp Resp 09/06/20 11:18 87 20 09/06/20 09:48 96 H 18 18 17 20 09/06/20 09:00 09/06/20 07:46 71 20 09/06/20 04:45 75 24 Resp Resp BP Pulse Ox Pulse Ox Pulse Ox Pulse Ox 09/06/20 11:18 152/83 H 95 09/06/20 09:48 16 18 87 L 88 L 90 09/06/20 09:00 09/06/20 07:46 156/87 H 96 09/06/20 04:45 143/77 H 96 Pulse Ox Pulse Ox Pulse Ox 09/06/20 11:18 09/06/20 09:48 84 L 76 L 87 L 09/06/20 09:00 09/06/20 07:46 09/06/20 04:45 Medications Administered Current Inpatient Medications Acetaminophen (Acetaminophen 325 Mg Tab) 650 mg PO Q4H PRN PRN Reason: Pain or Fever Stop: 09/30/20 23:58 Albuterol (Albut/Ipratrop 3mg/0.5mg Neb 3 Ml Vial) 3 ml NEB Q6H PRN PRN Reason: Shortness Of Breath Or Wheezing Stop: 10/02/20 09:14 Last Admin: 09/03/20 07:07 Dose: 3 ml Documented by: Bupropion HCl (Bupropion Sr 100 Mg Tabcr) 100 mg PO BID [facility]EDITH Stop: 09/30/20 23:58 Last Admin: 09/06/20 08:48 Dose: 100 mg Documented by: Enoxaparin Sodium (Enoxaparin Inj 30 Mg/0.3 Ml Syr) 30 mg SQ QAM [facility] Stop: 10/01/20 08:59 Last Admin: 09/06/20 08:48 Dose: 30 mg Documented by: Fluticasone/Vilanterol (Fluticasone/Vilanterol 100/25mcg 14 Puffs/Inhaler) 1 puffs INH DAILY [facility] Stop: 10/03/20 11:59 Last Admin: 09/06/20 09:00 Dose: 1 puffs Documented by: Promethazine HCl 12.5 mg/ (Sodium Chloride) 50.5 mls @ 202 mls/hr IV Q6H PRN PRN Reason: Nausea And Vomiting Stop: 09/30/20 23:58 Methylprednisolone 60 mg/ (Syringe) 0.96 mls @ 1.5 mls/min IV Q12H [facility] Stop: 10/04/20 21:59 Last Admin: 09/06/20 08:48 Dose: 1.5 mls/min Documented by: Multivitamins/Minerals (Calcium 600mg + Vit D 400 Iu Tab) 2 tab PO BID [facility] Stop: 10/01/20 08:59 Last Admin: 09/06/20 08:48 Dose: 2 tab Documented by: Tramadol HCl (Tramadol Hcl 50 Mg Tablet) 25 - 50 mg PO Q4H PRN PRN Reason: Pain Stop: 09/30/20 23:58 Umeclidinium Jefferson (Umeclidinium Jefferson 62.5mcg/Blister 7 Puffs/Inhaler) 1 puffs INH QAM [facility] Stop: 10/03/20 11:59 Last Admin: 09/06/20 09:00 Dose: 1 puffs Documented by:
[2020-09-06] MEDS ORDERED: FUROSEMIDE 20 MG in SYRINGE 0 ML IV ONE (15:15)
--- NOTE | 2020-09-06 15:47 | Billing Data ---
Date of Service September 06, 2020 Coding Level of Care Code 30814 Inpt Consult Level 5
[2020-09-07 06:15] LABS: Hematocrit (blood only) 46.4 % (42-52); Hemoglobin 14.8 g/dL (14.0-18.0); Immature Granulocytes # (auto) 0.02 K/uL (0.00-0.02); Immature Granulocytes % (auto) 0.2 %; Lymphocytes # (auto) 0.85 K/uL (1.2-3.4); Mean Corpuscular Hgb Conc 31.9 g/dL (32-36); Mean Corpuscular Volume 93.9 fL (80-100); Mean Platelet Volume 10.4 fL (7.4-10.4); Monocytes # (auto) 0.79 K/uL (0.11-0.59); Monocytes % (auto) 8.3 %; Neutrophils # (auto) 7.83 K/uL (1.4-6.5); Neutrophils % (auto) 82.5 %; Platelet Count 384 K/uL (130-400); RDW Standard Deviation 55.2 fL (36.4-46.3); Red Blood Count 4.94 M/uL (4.7-6.1); White Blood Count 9.49 K/uL (4.8-10.8)
[2020-09-07 06:48] LABS: BUN Creatinine Ratio 35.7 (10-20); Calcium 9.2 mg/dl (8.5-10.1); Creatinine Clr Calc Pharmacy 93.7 ml/min; Est GFR (African American) 110.2; Est GFR (Non-African American) 95.1; Magnesium 2.4 mg/dl (1.8-2.4); Potassium 4.2 mmol/L (3.5-5.1)
[2020-09-07 06:53] LABS: Phosphorus 3.7 mg/dl (2.5-4.9)
[2020-09-07] MEDS: UMECLIDINIUM BROMIDE 62.5MCG/BLISTER 7 PUFFS/INHALER INH SCH (08:48)
[2020-09-07] MEDS: FLUTICASONE/VILANTEROL 100/25MCG 14 PUFFS/INHALER INH SCH (08:48)
[2020-09-07] MEDS: buPROPion SR 100 MG TABCR PO SCH ×2 (08:49→21:10)
[2020-09-07] MEDS: ENOXAPARIN INJ 30 MG/0.3 ML SYR SQ SCH (08:49)
[2020-09-07] MEDS: CALCIUM 600MG + VIT D 400 IU TAB PO SCH ×2 (08:49→21:10)
[2020-09-07] MEDS: methylPREDNISolone 60 MG in SYRINGE 0 ML IV SCH ×2 (10:33→21:10)
--- NOTE | 2020-09-07 16:00 | Hospitalist Progress Note ---
Date of Service September 07, 2020 Assessment & Plan (1) Acute respiratory failure with hypoxia: Acute on chronic hypoxemic respiratory failure secondary to COPD exacerbation H/O chronic respiratory failure secondary to COPD/ILD on home O2(2 L at rest and 4 L with ambulation), pulmonary hypertension as per records Did not have the right dose of oxygen delivery system at home which made him more shortness of breath with hypoxemia Recent infection with Covid is complicating the oxygen requirement status He was sent into the emergency room from the [place] Initially he required 15 L of oxygen to maintain saturation but since admission that level has gone down to 10 and sometimes below 10 CTA chest showed Questionable small linear filling defect seen within the right middle lobe pulmonary artery favors heterogeneous opacification rather than a chronic pulmonary embolus. Severe emphysema. Partial mucoid opacification of a few the right middle and lower lobe bronchi. Patchy densities within the base of the right middle lobe and right lower lobe. This could represent atelectasis or pneumonia. Denies any fever and/or chills and could not tolerate hospital provided inhalers Clinically much better today and his home inhalers have been restarted We will continue current medications and decrease Solu-Medrol to twice daily He is back to his baseline at rest and has been getting shortness of breath with desaturation with minimal activity Pulmonology on board A trial of Lasix 20mg IV was give, will give an additional 20mg today recommend against using 2 forms of ICS inhalers as this does potentially increase his risk of developing pneumonia, will dc mometasone inh on discharge Could not do the 2 steps O2 saturation test due to increasing shortness of breath, will try again tomorrow Will need a repeat CT chest in 3 month Clinically improves Mild QUINTIN (CPAP intolerance as per records) Does not use any CPAP and/or BiPAP New onset anemia Hemoglobin more than 13.8 No symptoms of recent GI bleed Transient hematochezia from straining months back. Will not need any further work-up but preventive follow-up will be good Monitor CBC Mood disorder as per records, at baseline No acute psychosis Past tobacco abuse. Quit smoking about 10 years back Social service RE assistance with procurement of durable medical equipment (home O2 w 8LPM capability) DVT prophylaxis Lovenox subcu DNR We will get PT and OT evaluation before discharge and to do steps before discharge Possible discharge tomorrow Admission and Anticipated Discharge Date Admission Date: August 31, 2020 Subjective Pt was seen and examined for follow up of SOB Lying in bed with no distress Pt said that he feels a lot better He said that when he tries to walk fast that he requires more oxygen He said that he does not have an oxygen thank that can go more than 5L at home Spoke to case management that will arrange for oxygen supplement Denies any chest pain, palpitation, dizziness and SOB Review of Systems Review of Systems: All systems reviewed & are unremarkable except as noted in Subjective Physical Exam Physical Exam: General- No acute distress Head- atraumatic Eyes- PERRL, EOMI, ENT- oropharynx clear Neck- supple, no JVD Lungs- +diminished breath sound Heart- regular rhythm; no murmur Abdomen- normal bowel sounds, soft, nontender Extremities- no calf tenderness Neuro- alert, oriented x 3; PERRL, EOMI; no facial palsy; no dysarthria Skin- warm & dry Results & Data Results & Data ([facility]) Vital Signs (Past 12 Hours) Vital Signs Temp Pulse Pulse Pulse Resp BP Pulse Ox 09/07/20 15:42 36.6 C 97 H 20 130/76 91 09/07/20 15:13 91 H 09/07/20 11:17 36.7 C 80 18 149/81 H 93 09/07/20 07:56 36.6 C 64 18 139/81 97 09/07/20 07:11 64
[2020-09-07] MEDS ORDERED: FUROSEMIDE 20 MG in SYRINGE 0 ML IV ONE (16:45)
--- NOTE | 2020-09-07 17:02 | Pulmonology Progress Note ---
Date of Service September 07, 2020 Assessment & Plan (1) COPD (chronic obstructive pulmonary disease): (2) Acute on chronic respiratory failure with hypoxia and hypercapnia: --Acute on chronic hypoxic hypercapnic respiratory failure Multifactorial Patient had COVID-19 in June 2020, could be residual effect from that Underlying pulmonary hypertension as well as severe COPD playing a role COVID-19 negative --Severe COPD with emphysema Gold class D, FEV1 28% predicted Continue with Breo and Incruse Roflumilast should be thought of to be added as an outpatient. I will add azithromycin 250 mg, Sunday --Pulmonary hypertension Type III-type II combination Treatment for COPD as above 2D echo 09/07/2020: EF 55-60%, grade 1 diastolic dysfunction, RVSP 68 mmHg, mild diffuse right ventricular hypokinesis Plan: Continue with incentive spirometry. Add flutter valve with guaifenesin Patient will benefit from pulmonary rehab given the FEV1 is only 28% predicted Add azithromycin 250 mg every other day. Patient's QTC 436. Continue with Solu-Medrol. Go down to 40 mg twice daily starting tomorrow Overall prognosis the patient is poor. Palliative care consult should be considered Please note the above document was generated using voice recognition software. It may contain grammatical, syntax or spelling errors.Any formal questions or concerns about the content, text or information contained within the body of this dictation should be directly addressed to the provider for clarification. (3) SOB (shortness of breath): Admission and Anticipated Discharge Date Admission Date: August 31, 2020 Subjective Patient seen and examined at bedside. No acute distress, no adverse events overnight. Patient states that he is feeling a little bit better compared to when he came to the hospital. He says that when he sitting it is saturating well but whenever he has to exert himself he gets really short of breath. At the time of examination patient was saturating 93% on 5 L nasal cannula. Patient denies any chest pain. He is coughing which is not abnormal for him. He is able to bring up phlegm. Good appetite. Review of Systems Review of Systems: All systems reviewed & are unremarkable except as noted in Subjective Physical Exam Physical Exam: Constitutional: No acute distress HEENT: EOMI, PERRLA Respiratory system: Decreased air entry bilaterally, no wheeze, no rhonchi, positive crackles bilateral lower lobes CVS: S1-S2 positive, no murmurs or gallops, distant heart sounds Abdomen: Soft, nontender, nondistended, positive bowel sounds x4 Extremities: +2 pulses bilaterally radialis/ dorsalis pedis, no cyanosis, no edema Neuro: Awake alert oriented x3 Psych: Normal mood and affect G/U: No [place] Skin: no rashes, warm and dry Lymphatic: no cervical or axillary lymphadenopathy Results & Data Results & Data ([facility]) Vital Signs (Past 12 Hours) Vital Signs Temp Pulse Pulse Pulse Resp BP Pulse Ox 09/07/20 15:42 36.6 C 97 H 20 130/76 91 09/07/20 15:13 91 H 09/07/20 11:17 36.7 C 80 18 149/81 H 93 09/07/20 07:56 36.6 C 64 18 139/81 97 09/07/20 07:11 64 09/07/20 05:43 09/07/20 05:43 PG Care Time/CCT Total # of Minutes Spent Total Time Spent with Patient: Total time spent is greater than 50% in coordination of care (as documented) at patient's floor/unit and/or counseling patient: Coding Level of Care Code 32154 Subseq Hosp Care Lvl 3 Diagnoses COPD (chronic obstructive pulmonary disease) J44.9 Acute on chronic respiratory failure with hypoxia and hypercapnia J96.21; J96.22 SOB (shortness of breath) R06.02
[2020-09-07] MEDS ORDERED: AZITHROMYCIN 250 MG TAB PO SCH (18:00)
[2020-09-07] MEDS: guaiFENesin 600 MG TABCR PO SCH (21:10)
[2020-09-08] MEDS: FLUTICASONE/VILANTEROL 100/25MCG 14 PUFFS/INHALER INH SCH (07:51)
[2020-09-08] MEDS: CALCIUM 600MG + VIT D 400 IU TAB PO SCH (07:51)
[2020-09-08] MEDS: buPROPion SR 100 MG TABCR PO SCH (07:52)
[2020-09-08] MEDS: guaiFENesin 600 MG TABCR PO SCH (07:52)
[2020-09-08] MEDS: ENOXAPARIN INJ 30 MG/0.3 ML SYR SQ SCH (07:52)
[2020-09-08] MEDS: UMECLIDINIUM BROMIDE 62.5MCG/BLISTER 7 PUFFS/INHALER INH SCH (07:52)
[2020-09-08] MEDS ORDERED: methylPREDNISolone 40 MG in SYRINGE 0 ML IV SCH (10:00)
--- NOTE | 2020-09-08 12:00 | Palliative Care Consultation ---
Date of Consultation September 08, 2020 Assessment & Plan (1) SOB (shortness of breath): He feels that this is much improved and not a problem. He is very motivated to go home and does not feel that he will have any problems at home, despite the severity of his disease. (2) Palliative care encounter: I spoke with patient at bedside about how things are working for them at home. He does not perceive any problems from his perspective and is just a nxious to get home. He does not that his is more worried about how he will manage at home. He feels that he is able to do the things that he wants to do such as things around the house and fishing with his grandchildren. He does not think that he is in the end stages of his disease though he does understand that things are not likely to improve from where he's at now. He feels that he has good quality of life and is considering end of life care. He is a [place] who has survived multiple close calls and reports that he is not afraid of dying but doesn't feel that its time now. Interestingly, he notes that his mother of COPD and he had a hard time watching her "struggle". He does not elaborate on that. He would not want intubation if indicated but he would want to continue current level of care. He does follow with Dr. Schuler at [facility], who has been managing his pulmonary medications. (3) Acute on chronic respiratory failure with hypoxia and hypercapnia: (4) COPD (chronic obstructive pulmonary disease): History of Present Illness Reason for Consultation: goals of care Requesting Physician: Dr. Hutton Attending Physician: Elizabeth Hutton MD History of Present Illness 70 yo gentleman with COPD and recent covid pneumonia who was admitted with acute on chronic hypoxic respiratory failure. He had been hospitalized for three weeks at [facility] in [place] with covid pneumonia in early July[facility] and noted to be hypoxic which led to his admission here. He is O2 dependent with baseline flow of 3-4 lpm which was increased to 8 lpm with his pneumonia. He does have an FEV1 of 28% with pulmonary hypertension and poor prognosis. His baseline at home is that he is independent with ADLs and does some cooking and light housework. Having said that, he notes that he frequently has to stop and rest when doing things for 2-3 minutes to catch his breath. He has to rest after sitting on the edge of the bed here. He lives at home with his who works. Allergies Allergy/AdvReac Type Severity Reaction Status Date / Time No Known Allergies Allergy Verified 08/31/20 16:45 Home Medications Medication Instructions Recorded Confirmed Type acetylcysteine 3 ml INHALATION BID 08/31/20 08/31/20 History albuterol sulfate 2 puff INHALATION Q4H PRN 08/31/20 08/31/20 History albuterol sulfate 2.5 mg INHALATION QID PRN 08/31/20 08/31/20 History alendronate 70 mg PO WK 08/31/20 08/31/20 History budesonide-formoterol 2 puff INHALATION BID 08/31/20 08/31/20 History bupropion HCl 100 mg PO BID 08/31/20 08/31/20 History calcium carbonate-vitamin D3 2 tab PO BID 08/31/20 08/31/20 History [Calcium 500 + D] mometasone 3 inh INHALATION HS 08/31/20 08/31/20 History montelukast [Singulair] 10 mg PO DAILY 08/31/20 08/31/20 History omega 6-lpo-aow-fish oil [Fish Oil] 2 cap PO DAILY 08/31/20 08/31/20 History prednisone 40 mg PO DAILY PRN 08/31/20 08/31/20 History sildenafil 100 mg PO DAILY PRN 08/31/20 08/31/20 History tiotropium bromide 1 cap INHALATION DAILY 08/31/20 08/31/20 History Patient History Medical History COPD (chronic obstructive pulmonary disease) COVID-19 Social History Smoking Status: Former smoker Smoking End Date: 7 yrs ago; Hx Alcohol Use: No Hx Substance Use: No Preferred Language: Romansh Communication Ability: Effective Current Living Situation: Spouse Other Information That Helps Us Care for You: No Feels Safe at Home: Yes Assistive Devices: Glasses and Oxygen - Continuous Review of Systems Review of Systems: Lacey Symptom Assessment Scale Pain 0/3 Dyspnea 2/3 Nausea 0/3 Anxiety 2/3 Fatigue 2/3 Drowsiness 0/3 Palliative Performance Score 40% Physical Exam Constitutional: + frail appearing and + disheveled; no acute distress ENMT: Mouth: oral mucous membranes not dry Respiratory: no labored breathing (at rest, currently comfortable on 4 lpm) Gastrointestinal (Abdomen): Inspection/Auscultation: abdomen not distended Musculoskeletal: Extremities: extremities normal to inspection Skin: no rashes, warm and dry Neurologic: no focal motor deficits and not confused Psychiatric: Orientation: alert and oriented x 3 Affect: + angry affect Mood: + anxious mood and + irritable mood Results & Data ([facility]) Vital Signs (Past 12 Hours) Vital Signs Temp Pulse Pulse Pulse Resp BP Pulse Ox 09/08/20 07:23 73 09/08/20 07:14 98.1 F 70 20 137/85 96 09/08/20 02:59 97.7 F 84 20 132/84 97 09/08/20 00:01 78 PG Care Time/CCT Total # of Minutes Spent Total Time Spent with Patient: Total time spent is greater than 50% in coordination of care (as documented) at patient's floor/unit and/or counseling patient:total time spent 60 minutes with more than 50% of time spent on goals of care, support Coding Level of Care Code 63904 Inpt Consult Level 3 Diagnoses SOB (shortness of breath) R06.02 Palliative care encounter Z51.5 Acute on chronic respiratory failure with hypoxia and hypercapnia J96.21; J96.22 COPD (chronic obstructive pulmonary disease) J44.9
--- NOTE | 2020-09-08 14:19 | Pulmonology Progress Note ---
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 Azithromycin 250 mg, Sunday added --Pulmonary hypertension Type III-type II combination Treatment for COPD as above 2D echo 09/07/2020: EF 55-60%, grade 1 diastolic dysfunction, RVSP 68 mmHg, mild diffuse right ventricular hypokinesis Plan: Continue with incentive spirometry, flutter valve with guaifenesin Recommend pulmonary rehab given the FEV1 is only 28% predicted Continue with azithromycin 250 mg every other day. Patient's QTC 436. Can start p.o. prednisone as of tomorrow. Overall prognosis the patient is poor. Please note the above document was generated using voice recognition software. It may contain grammatical, syntax or spelling errors.Any formal questions or concerns about the content, text or information contained within the body of this dictation should be directly addressed to the provider for clarification. (3) SOB (shortness of breath): Admission and Anticipated Discharge Date Admission Date: August 31, 2020 Subjective Patient seen and examined at bedside. No acute distress, no adverse events overnight. Patient was saturating 94% on 4 L nasal cannula at the time of examination. Denies any chest pain. No headache. Has been using spirometry and flutter valve. Shortness of breath is better compared to coming to the hospital but still present on exertion. Review of Systems Review of Systems: All systems reviewed & are unremarkable except as noted in Subjective Physical Exam Physical Exam: Constitutional: No acute distress HEENT: EOMI, PERRLA Respiratory system: Decreased air entry bilaterally, no wheeze, no rhonchi, positive crackles bilateral lower lobes CVS: S1-S2 positive, no murmurs or gallops, distant heart sounds Abdomen: Soft, nontender, nondistended, positive bowel sounds x4 Extremities: +2 pulses bilaterally radialis/ dorsalis pedis, no cyanosis, no edema Neuro: Awake alert oriented x3 Psych: Normal mood and affect G/U: No Flores Skin: no rashes, warm and dry Lymphatic: no cervical or axillary lymphadenopathy Results & Data Results & Data ([facility]) Vital Signs (Past 12 Hours) Vital Signs Temp Pulse Pulse Pulse Pulse Pulse Pulse 09/08/20 12:52 99 H 100 H 95 H 108 H 104 H 09/08/20 07:23 73 09/08/20 07:14 36.7 C 09/08/20 02:59 36.5 C Pulse Pulse Pulse Resp Resp Resp Resp 09/08/20 12:52 97 H 18 18 18 09/08/20 07:23 09/08/20 07:14 70 20 09/08/20 02:59 84 20 Resp Resp Resp BP Pulse Ox Pulse Ox Pulse Ox 09/08/20 12:52 22 21 18 83 L 86 L 09/08/20 07:23 09/08/20 07:14 137/85 96 09/08/20 02:59 132/84 97 Pulse Ox Pulse Ox Pulse Ox Pulse Ox 09/08/20 12:52 91 84 L 85 L 80 L 09/08/20 07:23 09/08/20 07:14 09/08/20 02:59 09/07/20 05:43 09/07/20 05:43 PG Care Time/CCT Total # of Minutes Spent Total Time Spent with Patient: Total time spent is greater than 50% in coordination of care (as documented) at patient's floor/unit and/or counseling patient: Coding Level of Care Code 16191 Subseq Hosp Care Lvl 3 Diagnoses COPD (chronic obstructive pulmonary disease) J44.9 Acute on chronic respiratory failure with hypoxia and hypercapnia J96.21; J96.22 SOB (shortness of breath) R06.02
--- NOTE | 2020-09-08 15:40 | Hospitalist Progress Note ---
Date of Service September 08, 2020 Assessment & Plan (1) Acute respiratory failure with hypoxia: Acute on chronic hypoxemic respiratory failure secondary to COPD exacerbation H/O chronic respiratory failure secondary to COPD/ILD on home O2(2 L at rest and 4 L with ambulation), pulmonary hypertension as per records Did not have the right dose of oxygen delivery system at home which made him more shortness of breath with hypoxemia Recent infection with Covid is complicating the oxygen requirement status He was sent into the emergency room from the [place] [facility] Initially he required 15 L of oxygen to maintain saturation but since admission that level has gone down to 10 and sometimes below 10 CTA chest showed Questionable small linear filling defect seen within the right middle lobe pulmonary artery favors heterogeneous opacification rather than a chronic pulmonary embolus. Severe emphysema. Partial mucoid opacification of a few the right middle and lower lobe bronchi. Patchy densities within the base of the right middle lobe and right lower lobe. This could represent atelectasis or pneumonia. Denies any fever and/or chills and could not tolerate hospital provided inhalers Clinically much better today and his home inhalers have been restarted We will continue current medications and decrease Solu-Medrol to twice daily He is back to his baseline at rest and has been getting shortness of breath with desaturation with minimal activity Pulmonology on board A trial of Lasix 20mg IV was give, pt said that he already had lasix at home (that was recently started a day before admitting) recommend against using 2 forms of ICS inhalers as this does potentially increase his risk of developing pneumonia, will dc mometasone inh on discharge 2 step done (spoke to respiratory therapist that said pt required 4L NC at rest, but with ambulation his oxygen dropped where he had to be placed on 8L NC ) palliative care consulted for goal of care and pt is not ready to transition to palliative because he feels that he is improving Very anxious to go home today (He made his mind to go home today if case management can get him approve for an oxygen tank that goes as high as 8L NC at least) Will need a repeat CT chest in 3 month Pulm on board recommended Roflumilast can start as an outpatient. Azithromycin 250 mg, Sunday Will transition to PO prednisone taper on discharge Follow up with outpatient Yordy covarrubias Clinically improves Mild QUINTIN (CPAP intolerance as per records) Does not use any CPAP and/or BiPAP New onset anemia Hemoglobin more than 13.8 No symptoms of recent GI bleed Transient hematochezia from straining months back. Will not need any further work-up but preventive follow-up will be good FOBT negative Mood disorder as per records, at baseline No acute psychosis Past tobacco abuse. Quit smoking about 10 years back Social service RE assistance with procurement of durable medical equipment (home O2 w 8LPM capability) DVT prophylaxis Lovenox subcu DNR very anxious to go home Discharge home today Admission and Anticipated Discharge Date Admission Date: August 31, 2020 Subjective Pt was seen and examined for follow up of SOB Lying in bed with no distress Pt said that he feels ok He said that he is ready to go home today He said that as long as he does not move around his oxygen level remains above the 90% he is very anxious to go home He said that he does not have an oxygen thank that can go more than 5L at home Spoke to case management that will arrange for oxygen supplement Denies any chest pain, palpitation, dizziness and SOB Review of Systems Review of Systems: All systems reviewed & are unremarkable except as noted in Subjective Physical Exam Physical Exam: General- No acute distress Head- atraumatic Eyes- PERRL, EOMI, ENT- oropharynx clear Neck- supple, no JVD Lungs- +diminished breath sound Heart- regular rhythm; no murmur Abdomen- normal bowel sounds, soft, nontender Extremities- no calf tenderness Neuro- alert, oriented x 3; PERRL, EOMI; no facial palsy; no dysarthria Skin- warm & dry Results & Data Results & Data ([facility]) Vital Signs (Past 12 Hours) Vital Signs Temp Pulse Pulse Pulse Pulse Pulse Pulse 09/08/20 12:52 99 H 100 H 95 H 108 H 104 H 09/08/20 07:23 73 09/08/20 07:14 36.7 C Pulse Pulse Resp Resp Resp Resp Resp 09/08/20 12:52 97 H 18 18 18 22 09/08/20 07:23 09/08/20 07:14 70 20 Resp Resp BP Pulse Ox Pulse Ox Pulse Ox Pulse Ox 09/08/20 12:52 21 18 83 L 86 L 91 09/08/20 07:23 09/08/20 07:14 137/85 96 Pulse Ox Pulse Ox Pulse Ox 09/08/20 12:52 84 L 85 L 80 L 09/08/20 07:23 09/08/20 07:14
--- NOTE | 2020-09-09 08:56 | Discharge Summary ---
Date of Service September 08, 2020 Admission HPI Per Admitting Provider History obtained from patient and records. 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 Last confinement [facility] in [place] 6 weeks ago for COVID-19 pneumonia. No intubation done. Patient discharged home on supplemental O2 4 to 6 LPNC. After being discharged to home second week of July, patient found out that his oxygen concentrator only goes up to 5 L/min. Shortness of breath on exertion noted at home. O2 sats 80s on maximal 5 L at home. No unusual chest pain or cough symptoms. On follow-up at PCPs office last week, initial pulse ox noted to be 84%. Pulse ox improved to 92% on 8 L. Patient given prescription for home O2 set at 8 L as needed to be obtained from the [facility] as per documentation. Patient also given Lasix prescription for 2 weeks with note of leg swelling during office visit. [facility] the local [facility] today to procure home O2 equipment. Equipment not available at the [facility]. Patient noted to be short of breath and hypoxemic at the [facility] clinic. O2 sats 60s. No chest pain, no unusual cough symptoms. Patient brought to the ER for evaluation. Received neb treatment at the ER. O2 sats at the ER at some point 80s on 10 L. Medical History as above Surgical History : Shoulder surgery, wrist surgery, hemorrhoidectomy Family History : Heart disease Personal/Social history : Past tobacco abuse, no EtOH intake, disabled Admission Exam Per Admitting Provider GENERAL: Slightly uncomfortable, minimal respiratory distress SKIN: Pallor , warm HEENT: Pale palpebral conjunctivae, no ptosis, dry buccal mucosa, nasal cannula in place NECK : Supple, no tenderness CHEST : Decreased breath sounds, occasional expiratory wheezes, no tenderness HEART : RRR, no obvious murmurs ABDOMEN: Some distention, nontender RECTAL : Refused EXTREMITIES : No LE swelling/tenderness, no other conspicuous deformities noted NEUROLOGIC : Coherent, no facial asymmetry, no other gross focality Principal Diagnosis Acute respiratory failure with hypoxia Mild QUINTIN Anemia Mood disorder Discharge Exam General- No acute distress Head- atraumatic Eyes- PERRL, EOMI, ENT- oropharynx clear Neck- supple, no JVD Lungs- +diminished breath sound Heart- regular rhythm; no murmur Abdomen- normal bowel sounds, soft, nontender Extremities- no calf tenderness Neuro- alert, oriented x 3; PERRL, EOMI; no facial palsy; no dysarthria Skin- warm & dry Discharge Data Allergies Allergy/AdvReac Type Severity Reaction Status Date / Time No Known Allergies Allergy Verified 08/31/20 16:45 Consultations 08/31/20 19:42 ED Decision to Admit Stat 08/31/20 23:59 Consult Case Management - Discharge Planning Routine 09/06/20 11:39 Consult Pulmonology Routine 09/08/20 08:56 Consult Palliative Care Routine Ordered Studies 08/31/20 17:10 CT angio chest PE protocol Stat CHEST CTA for PULMONARY ARTERIES CT DOSE: 354.41 mGy.cm HISTORY: Shortness of breath. Atypical chest pain. TECHNIQUE: Multiaxial CT images of the chest were performed following the intravenous administration of contrast to evaluate the pulmonary arteries. Maximal intensity projection images were also obtained. A dose lowering technique was utilized adhering to the principles of ALARA. COMPARISON STUDY: None. FINDINGS: The ascending thoracic aorta measures up to 4.3 cm in diameter. Inadequate contrast within the thoracic aorta to evaluate for a dissection. No pleural or pericardial effusions. The heart is mildly enlarged. Limited views of the upper abdomen demonstrate a normal spleen and adrenal glands. There is retrograde opacification of the hepatic veins. Normal esophagus. Incidental note is made of an aberrant right subclavian artery. There is mild mediastinal and bilateral hilar lymphadenopathy. The dominant left infrahilar lymph node measures 1.7 cm. A dominant right hilar lymph node measures 11 mm. Dominant AP window lymph node measures 13 mm. Old L1 compression deformity. No suspicious lytic are blastic osseous lesions. Severe bullous emphysema. Partial opacification of a few the right middle and lower lobe bronchi. A few small linear scarlike densities within the upper lung zones. A few small peripheral nodular and groundglass densities are seen at the left lung base. Dominant irregular density within the base of the left lower lobe measures 1.6 cm. This is best seen on image 77. A few additional smaller nodular densities measuring between 5 and 8 mm. Additional patchy densities within the base of the right middle lobe and right lower lobe. These are nonspecific and could represent atelectasis or pneumonia. Questionable small linear filling defect seen within the right middle lobe pulmonary artery on image 138. This favors heterogeneous opacification rather than a chronic embolus. No evidence for acute pulmonary embolus. IMPRESSION: 1. No evidence for acute pulmonary embolus. 2. Questionable small linear filling defect seen within the right middle lobe pulmonary artery favors heterogeneous opacification rather than a chronic pulmonary embolus. 3. Severe emphysema. 4. Partial mucoid opacification of a few the right middle and lower lobe bronchi. 5. Patchy densities within the base of the right middle lobe and right lower lobe. This could represent atelectasis or pneumonia. 6. Small peripheral nodular and groundglass densities within the left lung base as described above. This could be due to a mild pneumonitis. However, [address] follow-up recommended to ensure stability/resolution of these nodules. 7. Mild mediastinal and bilateral hilar lymphadenopathy. This also bears watching future examinations. ACT 112: Positive. There are findings on this exam that require communication between the performing entity and the patient following Patient Test Result Information Act ([place] Act 112) guidelines. Electronically signed by: Gumaro Redman M.D. 08/31/2020 7:23 PM Dictated: 08/31/201906Transcribed: 08/31/201906 XR chest 1V portable HISTORY: 70 years-old Male SOB acute shortness of breath COMPARISON: None TECHNIQUE: Portable AP view of the chest FINDINGS: Cardiac silhouette is upper limits of normal in size. Prominence of the pulmonary vasculature may reflect pulmonary artery hypertension. Suggested emphysema. No pneumothorax. Interstitial opacities of the mid and lower lung zones. Mild blunting of the costophrenic angles. Degenerative changes of the shoulders and spine. IMPRESSION: Emphysema with interstitial opacities of the mid and lower lung zones which may be on a chronic basis with associated atelectasis. An interstitial pneumonitis would be difficult to exclude. ACT 112: Negative or not required by law. The above report was generated using voice recognition software. It may contain grammatical, syntax or spelling errors. Electronically signed by: Taz Farrar M.D. 08/31/2020 4:56 PM Dictated: 08/31/201653Transcribed: 08/31/201653 Hospital Course (1) Acute respiratory failure with hypoxia: Acute on chronic hypoxemic respiratory failure secondary to COPD exacerbation H/O chronic respiratory failure secondary to COPD/ILD on home O2(2 L at rest and 4 L with ambulation), pulmonary hypertension as per records Did not have the right dose of oxygen delivery system at home which made him more shortness of breath with hypoxemia Recent infection with Covid is complicating the oxygen requirement status He was sent into the emergency [facility] from [facility] Initially he required 15 L of oxygen to maintain saturation but since admission that level has gone down to 10 and sometimes below 10 CTA chest showed Questionable small linear filling defect seen within the right middle lobe pulmonary artery favors heterogeneous opacification rather than a chronic pulmonary embolus. Severe emphysema. Partial mucoid opacification of a few the right middle and lower lobe bronchi. Patchy densities within the base of the right middle lobe and right lower lobe. This could represent atelectasis or pneumonia. Denies any fever and/or chills and could not tolerate hospital provided inhalers Clinically much better today and his home inhalers have been restarted We will continue current medications and decrease Solu-Medrol to twice daily He is back to his baseline at rest and has been getting shortness of breath with desaturation with minimal activity Pulmonology on board A trial of Lasix 20mg IV was give, pt said that he already had lasix at home (that was recently started a day before admitting) recommend against using 2 forms of ICS inhalers as this does potentially increase his risk of developing pneumonia, will dc mometasone inh on discharge 2 step done (spoke to respiratory therapist that said pt required 4L NC at rest, but with ambulation his oxygen dropped where he had to be placed on 8L NC ) palliative care consulted for goal of care and pt is not ready to transition to palliative because he feels that he is improving Very anxious to go home today (He made his mind to go home today if case management can get him approve for an oxygen tank that goes as high as 8L NC at least) Will need a repeat CT chest in 3 month Pulm on board recommended Roflumilast can start as an outpatient. Azithromycin 250 mg, Sunday Will transition to PO prednisone taper on discharge Follow up with outpatient Yordy puleugenia Clinically improves Mild QUINTIN (CPAP intolerance as per records) Does not use any CPAP and/or BiPAP New onset anemia Hemoglobin more than 13.8 No symptoms of recent GI bleed Transient hematochezia from straining months back. Will not need any further work-up but preventive follow-up will be good FOBT negative Mood disorder as per records, at baseline No acute psychosis Past tobacco abuse. Quit smoking about 10 years back Social service RE assistance with procurement of durable medical equipment (home O2 w 8LPM capability) DVT prophylaxis Lovenox subcu DNR very anxious to go home Discharge home today Total Time Total Time Spent Total Time Spent (In Minutes): 35 minutes Total Time Includes: Examination of the Patient, Discharge Planning, Medication Reconciliation, Communication With Other Providers and Other Discharge Plan Discharge Items Patient Disposition: Home - Self-Care Reason For Visit: RESP FAILURE Discharge Diagnosis: Acute respiratory failure with hypoxia: Anemia Condition on Discharge: Fair Activity: Resume your previous activity Non-emergency contact: Primary Care Provider Call non-emergency contact if: you have any medication questions and your symptoms worsen Follow-up/Referrals: Zoran Morrell III, MD [Primary Care Provider] - (Date & Time 09/10/2020 11:00 AM Provider Zoran Morrell III, MD [facility] ) Diet: Heart Healthy Addtl Attending Provider Instructions: Follow up with your primary care provider Dr. Zoran Morrell on 09/10/20 @ 11:00 AM Follow up with your lung specialist dr. Schuler (please call to schedule for the appointment) Continue oxygen supplement with 4-5 L NC at rest and 7-8 L NC with ambulation Seek medical attention if shortness of breath worsening Your physician will order follow CT chest in 3-4 months You will benefit from pulmonary rehab Continue prednisone taper course Continue Azithromycin on Sunday, Sunday, Sunday for life Pending Studies at Discharge: No Stand-Alone Forms: My [facility], Smoking Cessation Medications and DC Order Prescriptions: New azithromycin 250 mg Tablet 250 mg PO UD Qty: 30 RF: 0 Incruse Ellipta 62.5 mcg/actuation Blister With Device 1 puff inhalation QAM Qty: 30 RF: 0 prednisone 10 mg tablet 10 mg PO UD Qty: 22 RF: 0 Breo Ellipta 100-25 mcg/dose Blister With Device 1 puff inhalation DAILY Qty: 30 RF: 0 guaifenesin [Mucinex] 600 mg Tablet Extended Release 12hr 600 mg PO Q12 Qty: 30 RF: 0 Continued acetylcysteine 200 mg/mL (20 %) Solution 3 ml INHALATION BID RF: 0 albuterol sulfate 2.5 mg /3 mL (0.083 %) Solution For Nebulization 2.5 mg INHALATION QID PRN (Reason: Shortness Of Breath) RF: 0 prednisone 20 mg Tablet 40 mg PO DAILY PRN (Reason: RESCUE KIT) RF: 0 alendronate 70 mg Tablet 70 mg PO WK RF: 0 sildenafil 100 mg Tablet 100 mg PO DAILY PRN (Reason: Erectile Dysfunction) RF: 0 bupropion HCl 100 mg Tablet Sustained-Release 12 Hr 100 mg PO BID RF: 0 montelukast [Singulair] 10 mg Tablet 10 mg PO DAILY RF: 0 albuterol sulfate 90 mcg/actuation Hfa Aerosol Inhaler 2 puff INHALATION Q4H PRN (Reason: Shortness Of Breath) RF: 0 calcium carbonate-vitamin D3 [Calcium 500 + D] 500 mg(1,250mg) -200 unit Table t 2 tab PO BID RF: 0 omega 1-sgl-slt-fish oil [Fish Oil] 1,000 mg (120 mg-180 mg) Capsule 2 cap PO DAILY RF: 0 Discontinued tiotropium bromide 18 mcg Capsule, W/Inhalation Device 1 cap INHALATION DAILY RF: 0 mometasone 220 mcg/ actuation (60) Aerosol Powdr Breath Activated 3 inh INHALATION HS RF: 0 budesonide-formoterol 160-4.5 mcg/actuation Hfa Aerosol Inhaler 2 puff INHALATION BID RF: 0 Discharge Orders: Discharge Order (Routine); Ordered 09/08/20 Ordered By: Elizabeth Hutton Admission Data Admit Date/Time: 08/31/20 21:06 Attending Provider: Elizabeth Hutton Admit Provider: Nadeem Mendes Primary Care Provider: Zoran Morrell III Other Providers: [facility] ; Nadeem Mendes ; Temitope Cedillo ; Valentina Ndiaye ; Rose Nova Other Interventions: Discharge Summary Assessment (RN) Last Done: 09/08/20 15:56
== END 2020-09-08 17:42 | disposition home or self-care (01) | DRG 189 ==
LOC: ED 15:40 → SUATTDRO 21:06 → 2N 21:06